=== PATIENT | male | born 1980 | race Asian ===

== ENCOUNTER 2017-02-23 20:12 | Inpatient (IN) | payer OTHER ==
[2017-02-23] MEDS ORDERED: LORAZEPAM CARPU-JECT 2 MG/ML DISP.SYRIN IVPUSH ONE ×2 (20:34→23:16)
[2017-02-23] MEDS ORDERED: SODIUM CHLORIDE 0.9% 500 ML INFUS.BAG IV ONE (20:34)
[2017-02-23] MEDS ORDERED: chlordiazePOXIDE HCL 25 MG CAPSULE PO ONE (20:36)
[2017-02-23] MEDS ORDERED: FOLIC ACID INJECTION - 1 MG, THIAMINE HCL 100 MG, MULTIVIT INJECTION ADULT 10 ML in SOD... IVPB ONE (20:38)
[2017-02-23] MEDS ORDERED: PANTOPRAZOLE SODIUM 40 MG in SODIUM CHLORIDE 100 ML IVPB ONE (20:40)
[2017-02-23] MEDS ORDERED: ONDANSETRON 4 MG/2 ML VIAL IVPUSH ONE (20:40)
--- NOTE | 2017-02-23 20:41 | PDOC ---
History of Present Illness - History of Present Illness Initial Comments: 02/23/17 22:38 Patient is a 36 year old male with significant medical hx of ETOH abuse who is presenting to the ED with several episodes of vomiting with bright red blood today. The patient had two episodes of vomiting with bright red blood followed with one episode of coffee ground emesis this evening. The patient reports poor appetite today. His last BM was today and it was reported normal without any blood, mucous, or change in color. Denies any fever or chills. Patient drinks "a lot"; he has never been through detox. The patient's last drink was this morning. He is a poor historian. Denies any fever, chills, diarrhea, black stooling, blood in stool, mucous in stool. <Yasmin Menendez - Last Filed: 02/23/17 23:07> <Tye Smalls - Last Filed: 02/24/17 01:24> - General Chief Complaint: Coffee Ground Emesis Stated Complaint: VOMITING BLOOD/ALCOHOL INTOX/SUBSTANCE ABUSE Past History <Yasmin Menendez - Last Filed: 02/23/17 23:07> - Psycho/Social/Smoking Cessation Hx Suicidal Ideation: No Smoking History: Current every day smoker Information on smoking cessation initiated: No Hx Alcohol Use: Yes (daily) <Tye Smalls - Last Filed: 02/24/17 01:24> - Past Medical History Allergies/Adverse Reactions: Allergies Allergy/AdvReac Type Severity Reaction Status Date / Time egg Allergy Intermediate Vomiting Verified 02/23/17 20:26 Home Medications: Ambulatory Orders Doxylamine Succinate [Unisom Sleep Aid] 25 mg PO ASDIR 02/23/17 Review of Systems - Review of Systems Comments:: 02/23/17 22:45 GENERAL/CONSTITUTIONAL: Poor appetite. No fever or chills. No weakness. HEAD, EYES, EARS, NOSE AND THROAT: No change in vision. No ear pain or discharge. No sore throat. CARDIOVASCULAR: No chest pain or shortness of breath. RESPIRATORY: No cough, wheezing, or hemoptysis. GASTROINTESTINAL: Nausea, vomiting with blood. No diarrhea or constipation. GENITOURINARY: No dysuria, frequency, or change in urination. MUSCULOSKELETAL: No joint or muscle swelling or pain. No neck or back pain. SKIN: No rash NEUROLOGIC: No headache, vertigo, loss of consciousness, or change in strength/ sensation. <Yasmin Menendez - Last Filed: 02/23/17 23:07> *Physical Exam - Vital Signs Last Vital Signs Temp Pulse Resp BP Pulse Ox 97.5 F L 110 H 18 133/85 98 02/23/17 20:27 02/23/17 21:45 02/23/17 21:45 02/23/17 21:45 02/23/17 21:45 - Physical Exam Comments: 02/23/17 22:46 GENERAL: Awake, alert, and fully oriented, mild distress, diaphoretic, tremulous HEAD: No signs of trauma EYES: PERRLA, EOMI, sclera anicteric, conjunctiva clear ENT: Auricles normal inspection, hearing grossly normal, nares patent, oropharynx clear without exudates. Moist mucosa NECK: Normal ROM, supple, no lymphadenopathy, JVD, or masses LUNGS: Breath sounds equal, clear to auscultation bilaterally. No wheezes, and no crackles HEART: Tachycardic, normal S1 and S2, no murmurs, rubs or gallops ABDOMEN: Soft, epigastric tenderness, normoactive bowel sounds. No guarding, no rebound. No masses EXTREMITIES: Normal range of motion, no edema. No clubbing or cyanosis. No cords, erythema, or tenderness NEUROLOGICAL: Cranial nerves II through XII grossly intact. Normal speech, normal gait SKIN: Warm, Dry, normal turgor, no pallor, no rashes or lesions noted. ENDOCRINE: No increased thirst. No abnormal weight change. HEMATOLOGIC/LYMPHATIC: No anemia, easy bleeding, or history of blood clots. ALLERGIC/IMMUNOLOGIC: No hives or skin allergy. <Yasmin Menendez - Last Filed: 02/23/17 23:07> - Vital Signs Last Vital Signs Temp Pulse Resp BP Pulse Ox 97.5 F L 153 H 20 120/70 98 02/23/17 20:27 02/23/17 20:27 02/23/17 20:27 02/23/17 20:27 02/23/17 20:27 <Tye Smalls - Last Filed: 02/24/17 01:24> Heart Score/ECG Review #1 02/23/17 23:07 Poor data quality, interpretation may be adversely affected Sinus tachycardia at 127 bpm with occasional premature ventricular complexes Otherwise normal ECG <Yasmin Menendez - Last Filed: 02/23/17 23:07> ED Treatment Course - LABORATORY CBC & Chemistry Diagram: 02/23/17 21:00 02/23/17 21:00 - ADDITIONAL ORDERS Additional order review: Laboratory Results 02/23/17 02/23/17 02/23/17 21:00 21:00 21:00 Sodium Potassium Chloride Carbon Dioxide Anion Gap BUN Creatinine Creat Clearance w eGFR Random Glucose Lactic Acid 7.548 H* Calcium Total Bilirubin AST ALT Alkaline Phosphatase Creatine Kinase 151 Troponin I < 0.02 B-Natriuretic Peptide 11.02 Total Protein Albumin TSH Free T4 Blood Type O POSITIVE Antibody Screen Negative 02/23/17 02/23/17 21:00 20:45 Sodium 139 Potassium 4.3 Chloride 97 L Carbon Dioxide 20 L Anion Gap 22 H BUN 15 Creatinine 1.0 Creat Clearance w eGFR > 60 Random Glucose 153 H Lactic Acid Calcium 8.4 L Total Bilirubin 0.7 AST 53 H ALT 67 Alkaline Phosphatase 88 Creatine Kinase 151 Troponin I < 0.02 B-Natriuretic Peptide Total Protein 7.8 Albumin 3.9 TSH 1.07 Free T4 0.63 L Blood Type Antibody Screen 02/23/17 21:00 RBC 4.31 MCV 86.0 MCHC 33.3 RDW 14.9 MPV 6.5 L Neutrophils % 88.2 H Lymphocytes % 7.9 L Monocytes % 3.2 L Eosinophils % 0.1 Basophils % 0.6 - RADIOLOGY Radiograph Interpretation: 02/23/17 22:47 Chest X-Ray Impression: No acute cardiopulmonary disease is present. Reported By: Renetta Bateman MD - Medications Given in the ED: ED Medications Discontinued Medications Generic Name Dose Route Start Last Admin Trade Name Freq PRN Reason Stop Dose Admin Chlordiazepoxide HCl 50 mg 02/23/17 20:36 02/23/17 21:04 Librium - PO 02/23/17 20:37 50 mg ONCE ONE Administration Pantoprazole Sodium 40 mg/ 100 mls @ 200 mls/hr 02/23/17 20:40 02/23/17 21:08 Sodium Chloride IVPB 02/23/17 21:09 200 mls/hr ONCE ONE Administration Lorazepam 2 mg 02/23/17 20:34 02/23/17 20:58 Ativan Injection - IVPUSH 02/23/17 20:35 2 mg ONCE ONE Administration Ondansetron HCl 4 mg 02/23/17 20:40 02/23/17 20:58 Zofran Injection IVPUSH 02/23/17 20:41 4 mg ONCE ONE Administration Sodium Chloride 1,000 ml 02/23/17 20:34 02/23/17 20:58 Normal Saline - IV 02/23/17 20:35 1,000 ml ONCE ONE Administration <Yasmin Menendez - Last Filed: 02/23/17 23:07> - LABORATORY CBC & Chemistry Diagram: 02/23/17 21:00 02/23/17 21:00 - RADIOLOGY Radiology Studies Ordered: Category Date Time Status CHEST X-RAY PORTABLE* [RAD] Stat Radiology 02/23/17 20:35 Ordered <Tye Smalls - Last Filed: 02/24/17 01:24> Medical Decision Making - Critical Care Time Total Critical Care Time (minutes): 60 Critical Care Statement: The care of this patient involved high complexity decision making to prevent further life threatening deterioration of the patient 's condition and/or to evalute & treat vital organ system(s) failure or risk of failure. <Yasmin Menendez - Last Filed: 02/23/17 23:07> - Medical Decision Making 02/24/17 00:49 36yo m with coffee ground emesis and chronic alcoholism with last drink "this morning." I have concern for UGI bleed, particularly, esophageal varices. I have started the patient on octreotide bolus and drip; protonix, zofran, aggressive hydration, nutritional support; I have endorsed the patient to Dr. Bernstein for ICU admission; ICU SENIOR GAME ADVISOR also informed, requests repeat CBC; will redraw ; l;actate improving. He has potential for lung pathology given his chronic excessive alcohol use however, no febrile complaints leading up tothe encounter. I will start him on Azithromycin IVPB <Tye Smalls - Last Filed: 02/24/17 01:24> *DC/Admit/Observation/Transfer - Attestations Scribe Attestion: 02/23/17 22:49 Documentation prepared by Yasmin Menendez, acting as medical field representative for Tye Smalls MD. <Yasmin Menendez - Last Filed: 02/23/17 23:07> - Discharge Dispostion Admit: Yes Decision to Admit order Date/Time: 02/24/17 00:49 - Transfer to Acute Care Facility Transfer comment: 02/24/17 00:49 I, Dr. Tye Smalls MD, attest that this document has been prepared under my direction and personally reviewed by me in its entirety. I further attest, that it accurately reflects all work, treatment, procedures and medical decision -making performed by me. - Attestations Physician Attestion: 02/24/17 01:23 Dr. Tye Banks MD, attest that this document has been prepared under my direction and personally reviewed by me in its entirety. I further attest, that it accurately reflects all work, treatment, procedures and medical decision -making performed by me. <Tye Smalls - Last Filed: 02/24/17 01:24> Diagnosis at time of Disposition: Tachycardia, Tremulousness, Lactic acidosis Alcohol withdrawal Qualifiers: Complication of substance-induced condition: uncomplicated Qualified Code(s): F10.230 - Alcohol dependence with withdrawal, uncomplicated - Discharge Dispostion Condition at time of disposition: Critical
[2017-02-23] MEDS ORDERED: LORAZEPAM CARPU-JECT 2 MG/ML DISP.SYRIN ONE ×2 (20:54→23:40)
[2017-02-23] MEDS ORDERED: ONDANSETRON 4 MG/2 ML VIAL ONE (20:54)
[2017-02-23] MEDS ORDERED: PANTOPRAZOLE SODIUM 100 ML IVPB ONE (21:01)
[2017-02-23] MEDS ORDERED: chlordiazePOXIDE HCL 25 MG CAPSULE ONE (21:01)
[2017-02-23 21:07] LABS: BASOPHIL 0.6 % (0-2.0); EOSINOPHIL 0.1 % (0-4.5); MCH 28.6 pg (25.7-33.7); MCHC 33.3 g/dl (32.0-35.9); MEAN PLT VOLUME 6.5 fl (7.5-11.1); NEUTROPHILS 88.2 % (42.8-82.8); PLATELET COUNT 407 K/MM3 (134-434); RDW 14.9 % (11.9-15.9); WHITE BLOOD COUNT 10.2 K/mm3 (4.0-10.0)
[2017-02-23 21:36] LABS: ALBUMIN 3.9 g/dl (3.4-5.0); ANION GAP 22 (8-16); BILIRUBIN,TOTAL 0.7 mg/dL (0.2-1.0); CALCIUM 8.4 mg/dL (8.5-10.1); CO2 20 mmol/L (21-32); GLUCOSE,RANDOM 153 mg/dL (74-106); SGOT/AST 53 U/L (15-37); SGPT/ALT 67 U/L (12-78); TOT PROT 7.8 g/dl (6.4-8.2)
[2017-02-23 21:37] LABS: TROPONIN I < 0.02 ng/ml (0.00-0.05)
[2017-02-23 21:39] LABS: ALK PHOS 88 U/L (45-117); TROPONIN I < 0.02 ng/ml (0.00-0.05)
[2017-02-23 21:46] LABS: FREE T4 0.63 ng/dl (0.76-1.16); THYROID STIMULATING HORMONE 1.07 uIU/ml (0.358-3.74)
[2017-02-23] MEDS ORDERED: AZITHROMYCIN IVPB 500 MG in DEXTROSE 5%-WATER - 250 ML IVPB ONE (23:16)
[2017-02-23] MEDS ORDERED: OCTREOTIDE ACETATE 50 MCG/1 ML - 1 ML VIAL IVPUSH ONE (23:25)
[2017-02-23] MEDS ORDERED: OCTREOTIDE ACETATE 1,200 MCG in DEXTROSE 5%-WATER - 488 ML IVPB SCH (23:30)
[2017-02-23] MEDS ORDERED: AZITHROMYCIN IVPB 250 ML IVPB ONE (23:40)
[2017-02-23] MEDS ORDERED: OCTREOTIDE ACETATE 500 MCG/1 ML - 1 ML VIAL ONE ×2 (23:42→23:43)
[2017-02-23] MEDS ORDERED: OCTREOTIDE ACETATE 100 MCG/1 ML ONE (23:42)
--- NOTE | 2017-02-24 01:03 | PN ---
<Ricky Villaclarice - Last Filed: 02/24/17 01:03> Teaching Attending Note Name of Resident: Channing Ramos ATTENDING PHYSICIAN STATEMENT I saw and evaluated the patient. I reviewed the resident's note and discussed the case with the resident. I agree with the resident's findings and plan as documented. SUBJECTIVE: OBJECTIVE: ASSESSMENT AND PLAN: <Ruiz Tabares - Last Filed: 02/24/17 03:24> Teaching Attending Note ATTENDING PHYSICIAN STATEMENT I saw and evaluated the patient. I reviewed the resident's note and discussed the case with the resident. I agree with the resident's findings and plan as documented. SUBJECTIVE: Patient is a 36 year old male with significant medical history of ETOH abuse who is presented with 6 episodes of coffee ground emesis. The patient reported that his last episode of vomiting was at 6 pm today. The patient reported associated abdominal pain, headache, and diaphoresis. Stated that his last drink was this morning (3x 24oz beers) Denies any hematemesis, fever, chills, diarrhea, melena, hematochezia, and/or mucous in school. OBJECTIVE: Vital Signs: Last Vital Signs Temp Pulse Resp BP Pulse Ox 100.2 F H 106 H 19 138/85 98 02/24/17 00:46 02/24/17 01:22 02/24/17 01:22 02/24/17 01:22 02/24/17 01:22 Physical Exam: GEN: NAD HEENT: NCAT, PERRL CARD: (+) Sinus tachycardia, S1 S2 RESP: CTAB ABD: (+) Distended abdomen LLQ tender on palpation EXT: - CCE Labs: CBCD WBC 8.1 K/mm3 (4.0-10.0) 02/24/17 01:00 RBC 2.97 M/mm3 (4.00-5.60) L D 02/24/17 01:00 Hgb 8.6 GM/dL (11.7-16.9) L D 02/24/17 01:00 Hct 25.5 % (35.4-49) L D 02/24/17 01:00 MCV 85.9 fl (80-96) 02/24/17 01:00 MCHC 33.7 g/dl (32.0-35.9) 02/24/17 01:00 RDW 15.1 % (11.9-15.9) 02/24/17 01:00 Plt Count 244 K/MM3 (134-434) D 02/24/17 01:00 MPV 6.7 fl (7.5-11.1) L 02/24/17 01:00 CMP Sodium 139 mmol/L (136-145) 02/23/17 21:00 Potassium 4.3 mmol/L (3.5-5.1) 02/23/17 21:00 Chloride 97 mmol/L (98-107) L 02/23/17 21:00 Carbon Dioxide 20 mmol/L (21-32) L 02/23/17 21:00 Anion Gap 22 (8-16) H 02/23/17 21:00 BUN 15 mg/dL (7-18) 02/23/17 21:00 Creatinine 1.0 mg/dL (0.7-1.3) 02/23/17 21:00 Creat Clearance w eGFR > 60 (>60) 02/23/17 21:00 Calcium 8.4 mg/dL (8.5-10.1) L 02/23/17 21:00 Total Bilirubin 0.7 mg/dL (0.2-1.0) 02/23/17 21:00 AST 53 U/L (15-37) H 02/23/17 21:00 ALT 67 U/L (12-78) 02/23/17 21:00 Alkaline Phosphatase 88 U/L (45-117) 02/23/17 21:00 Total Protein 7.8 g/dl (6.4-8.2) 02/23/17 21:00 Albumin 3.9 g/dl (3.4-5.0) 02/23/17 21:00 Imaging: Chest X-Ray Impression: No official read. No acute findings. ECG Impression: Sinus tach 127 with PBCs EXAM: CT abdomen/pelvis without contrast IMAGES: 500 DATE OF SERVICE: 02:16:00.0 REASON FOR EXAM: Distention, chronic alcohol abuse COMPARISON: None FINDINGS: There is no free air. There are no obvious gallstones. There is moderate bilateral hydronephrosis. The ureters are ectatic. No renal or ureteral calculi are seen. The urinary bladder is markedly distended. There are no bladder calculi. The large and small bowel is mildly distended with fluid and air. Findings likely indicative of diffuse ileus. The appendix is normal in size. There is no evidence of appendicitis. THIS DOCUMENT HAS BEEN ELECTRONICALLY SIGNED Geoffrey Carias MD ASSESSMENT AND PLAN: Patient is a 36 year old male with significant medical history of ETOH abuse who is presenting to the ED with several episodes of vomiting coffee ground emesis. Being admitted for GI bleed. 1. Upper GI bleed ? variceal bleed -Protonix drip -IVF -Type and Screen -Coags -2 Large bore IV -Repeat lactic acid -Protonix -Octreotide -GI consult -OCCULT -One unit PRB now and 2 units one hold -CBCs Q6H 2. ETOH abuse -Detox consult -Thimine/follic acid -Librium protocol 3. Elevated lactic acid- most likely from systemic hypoperfusion/alcoholism. -Blood cultures -IVF -Stat Urinalysis -Stat Urine culture -Repeat lactic acid 4. Nausea/Vomiting-mildly distended abdomen -CT abdomen pelvis -Admit to ICU 5. Ileus -NPO -If patient agreeable can consider NGT 6. DVT PPX SCDs Admit to ICU Documentation prepared by Ruiz Tabares, acting as certified medical technician for Dr. Francois Villa MD.
[2017-02-24] MEDS ORDERED: SODIUM CHLORIDE 0.9% 500 ML INFUS.BAG IV ONE (01:26)
[2017-02-24] MEDS ORDERED: SODIUM CHLORIDE 1,000 ML IV SCH ×3 (01:30→19:45)
[2017-02-24 01:46] LABS: BASOPHIL 0.4 % (0-2.0); EOSINOPHIL 0.1 % (0-4.5); MCH 28.9 pg (25.7-33.7); MCHC 33.7 g/dl (32.0-35.9); MEAN CELL VOLUME 85.9 fl (80-96); MEAN PLT VOLUME 6.7 fl (7.5-11.1); NEUTROPHILS 76.5 % (42.8-82.8); PLATELET COUNT 244 K/MM3 (134-434); RDW 15.1 % (11.9-15.9); WHITE BLOOD COUNT 8.1 K/mm3 (4.0-10.0)
[2017-02-24 02:01] LABS: INR 1.28 (0.82-1.09); PROTHROMBIN TIME (PATIENT) 14.2 SEC (9.98-11.88)
--- NOTE | 2017-02-24 02:04 | HP ---
CHIEF COMPLAINT: coffee ground emesis PCP: no pcp HISTORY OF PRESENT ILLNESS: 36 y/o M w/hx of alcohol abuse presents to ER after vomiting 5-7x this AM. Pt is a poor historian. He states he threw up dark brown colored vomit on each occasion and denied any bright red blood. He also c/o diarrhea that was watery , and was dark/black in color. He has some abdominal pain and feels like he is shaking at the moment. He drank 3 - 24ounce beers this AM and drinks 10-12 - 12 ounce beers per day and he has been drinking a large amount of alcohol since he was 23. Denies any drinking anything else besides beer. He has been drinking otherwise since age 7 but not "this much" when he was that young. Denies any drug use. He states he has been hospitalized twice in the past for seizures from withdrawals at [facility]. He denies any fevers or chills, CP, SOB, dysuria. ER course was notable for: (1) banana bag, octreotide, iv protonix, ekg, cxr (2) (3) PAST MEDICAL HISTORY: alcohol abuse PAST SURGICAL HISTORY: denies Social History: Smokin/2 ppd for 4 years Alcohol: 10-12 beers/day Drugs: denies Family History: Allergies egg Allergy (Intermediate, Verified 02/23/17 20:26) Vomiting HOME MEDICATIONS: Home Medications Medication Instructions Recorded Doxylamine Succinate [Unisom Sleep 25 mg PO ASDIR 02/23/17 Aid] REVIEW OF SYSTEMS CONSTITUTIONAL: Absent: fever, chills, diaphoresis, generalized weakness, malaise, loss of appetite, weight change HEENT: Absent: rhinorrhea, nasal congestion, throat pain, throat swelling, difficulty swallowing, mouth swelling, ear pain, eye pain, visual changes CARDIOVASCULAR: Absent: chest pain, syncope, palpitations, irregular heart rate, lightheadedness , peripheral edema RESPIRATORY: Absent: cough, shortness of breath, dyspnea with exertion, orthopnea, wheezing, stridor, hemoptysis GASTROINTESTINAL: abdominal pain, nausea, vomiting, diarrhea dark in color (melena) Absent: constipation GENITOURINARY: Absent: dysuria, frequency, urgency, hesitancy, hematuria, flank pain, genital pain MUSCULOSKELETAL: Absent: myalgia, arthralgia, joint swelling, back pain, neck pain SKIN: Absent: rash, itching, pallor HEMATOLOGIC/IMMUNOLOGIC: Absent: easy bleeding, easy bruising, lymphadenopathy, frequent infections ENDOCRINE: Absent: unexplained weight gain, unexplained weight loss, heat intolerance, cold intolerance NEUROLOGIC: tremulous Absent: headache, focal weakness or paresthesias, dizziness, unsteady gait, seizure, mental status changes, bladder or bowel incontinence PSYCHIATRIC: Absent: anxiety, depression, suicidal or homicidal ideation, hallucinations. PHYSICAL EXAMINATION Vital Signs - 24 hr 02/23/17 02/23/17 02/23/17 20:27 21:45 23:01 Temperature 97.5 F L Pulse Rate 153 H Pulse Rate [ 110 H 107 H Apical] Respiratory 20 18 24 Rate Blood Pressure 120/70 Blood Pressure 133/85 136/85 [Right Arm] O2 Sat by Pulse 98 98 96 Oximetry (%) 02/24/17 02/24/17 00:46 01:22 Temperature 100.2 F H Pulse Rate Pulse Rate [ 121 H 106 H Apical] Respiratory 20 19 Rate Blood Pressure Blood Pressure 138/85 [Right Arm] O2 Sat by Pulse 100 98 Oximetry (%) GENERAL: Awake, alert, and fully oriented, in moderate distress. Tremulous, anxious. HEAD: Normal with no signs of trauma. EYES: extraocular movements intact, sclera anicteric, conjunctiva clear. No lid lag. EARS, NOSE, THROAT: Ears normal, nares patent, oropharynx clear without exudates. Moist mucous membranes. Tongue with some brownish discoloration. NECK: Normal range of motion LUNGS: Tachypneic, Breath sounds equal, clear to auscultation bilaterally. No wheezes, and no crackles. No accessory muscle use. HEART: Tachycardic, normal S1 and S2 without murmur, rub or gallop. ABDOMEN: Soft, epigastric tenderness, distended, hypoactive bowel sounds, no guarding, no rebound, no masses. No hepatomegaly or splenomegaly. MUSCULOSKELETAL: Normal range of motion at all joints. No bony deformities or tenderness. No CVA tenderness. LOWER EXTREMITIES: 2+ pulses, warm, well-perfused. No calf tenderness. No peripheral edema. NEUROLOGICAL: Normal speech. Gait not observed. PSYCHIATRIC: Cooperative. Good eye contact. SKIN: Warm, dry, normal turgor, no rashes or lesions noted, normal capillary refill. Laboratory Results - last 24 hr 02/23/17 02/23/17 02/23/17 20:45 21:00 21:00 WBC 10.2 H RBC 4.31 Hgb 12.3 Hct 37.1 MCV 86.0 MCHC 33.3 RDW 14.9 Plt Count 407 MPV 6.5 L Neutrophils % 88.2 H Lymphocytes % 7.9 L Monocytes % 3.2 L Eosinophils % 0.1 Basophils % 0.6 INR Sodium 139 Potassium 4.3 Chloride 97 L Carbon Dioxide 20 L Anion Gap 22 H BUN 15 Creatinine 1.0 Creat Clearance w eGFR > 60 Random Glucose 153 H Lactic Acid Calcium 8.4 L Total Bilirubin 0.7 AST 53 H ALT 67 Alkaline Phosphatase 88 Creatine Kinase 151 Creatine Kinase Index CK-MB (CK-2) CK-MB (CK-2) Rel Index Troponin I < 0.02 B-Natriuretic Peptide Total Protein 7.8 Albumin 3.9 TSH 1.07 Free T4 0.63 L Alcohol, Quantitative Blood Type Antibody Screen 02/23/17 02/23/17 02/23/17 21:00 21:00 21:00 WBC RBC Hgb Hct MCV MCHC RDW Plt Count MPV Neutrophils % Lymphocytes % Monocytes % Eosinophils % Basophils % INR Sodium Potassium Chloride Carbon Dioxide Anion Gap BUN Creatinine Creat Clearance w eGFR Random Glucose Lactic Acid 7.548 H* Calcium Total Bilirubin AST ALT Alkaline Phosphatase Creatine Kinase 151 Creatine Kinase Index 0.8 CK-MB (CK-2) 1.196 CK-MB (CK-2) Rel Index Troponin I < 0.02 B-Natriuretic Peptide 11.02 Total Protein Albumin TSH Free T4 Alcohol, Quantitative Blood Type O POSITIVE Antibody Screen Negative 02/23/17 02/23/17 02/23/17 21:00 22:50 23:18 WBC RBC Hgb Hct MCV MCHC RDW Plt Count MPV Neutrophils % Lymphocytes % Monocytes % Eosinophils % Basophils % INR Sodium Potassium Chloride Carbon Dioxide Anion Gap BUN Creatinine Creat Clearance w eGFR Random Glucose Lactic Acid 5.577 H* Calcium Total Bilirubin AST ALT Alkaline Phosphatase Creatine Kinase Creatine Kinase Index CK-MB (CK-2) CK-MB (CK-2) Rel Index Cancelled Troponin I B-Natriuretic Peptide Total Protein Albumin TSH Free T4 Alcohol, Quantitative 45.1 H* Blood Type Antibody Screen 02/24/17 02/24/17 01:00 01:00 WBC 8.1 RBC 2.97 L D Hgb 8.6 L D Hct 25.5 L D MCV 85.9 MCHC 33.7 RDW 15.1 Plt Count 244 D MPV 6.7 L Neutrophils % 76.5 Lymphocytes % 16.1 D Monocytes % 6.9 D Eosinophils % 0.1 Basophils % 0.4 INR 1.28 H Sodium Potassium Chloride Carbon Dioxide Anion Gap BUN Creatinine Creat Clearance w eGFR Random Glucose Lactic Acid Calcium Total Bilirubin AST ALT Alkaline Phosphatase Creatine Kinase Creatine Kinase Index CK-MB (CK-2) CK-MB (CK-2) Rel Index Troponin I B-Natriuretic Peptide Total Protein Albumin TSH Free T4 Alcohol, Quantitative Blood Type Antibody Screen Urine Test Results Urine Color Straw 02/24/17 03:00 Urine Appearance Clear 02/24/17 03:00 Urine pH 5.0 (5.0-8.0) 02/24/17 03:00 Ur Specific [place] 1.012 (1.001-1.035) 02/24/17 03:00 Urine Protein Negative (NEGATIVE) 02/24/17 03:00 Urine Glucose (UA) 1+ (NEGATIVE) H 02/24/17 03:00 Urine Ketones 1+ (NEGATIVE) H 02/24/17 03:00 Urine Blood Negative (NEGATIVE) 02/24/17 03:00 Urine Nitrite Negative (NEGATIVE) 02/24/17 03:00 Urine Bilirubin Negative (NEGATIVE) 02/24/17 03:00 Ur Leukocyte Esterase Negative (NEGATIVE) 02/24/17 03:00 Imaging: CXR - no active pulmonary disease Abd CT - There is no free air. There are no obvious gallstones. There is moderate bilateral hydronephrosis. The ureters are ectatic. No renal or ureteral calculi are seen. The urinary bladder is markedly distended. There are no bladder calculi. The large and small bowel is mildly distended with fluid and air. Findings likely indicative of diffuse ileus. The appendix is normal in size. There is no evidence of appendicitis. THIS DOCUMENT HAS BEEN ELECTRONICALLY SIGNED Geoffrey Carias MD Active Medications Folic Acid 1 mg/ Thiamine HCl 100 mg/ Multivitamins/Minerals 10 ml/ Sodium Chloride 1,000 mls @ 125 mls/hr IVPB ONCE ONE Stop: 02/24/17 04:37 Last Admin: 02/23/17 21:40 Dose: 125 mls/hr Octreotide Acetate 1,200 mcg/ (Dextrose) 500 mls @ 20.83 mls/hr IVPB Q24H OWEN; 50 MCG/HR PRN Reason: Protocol Last Admin: 02/24/17 00:11 Dose: 20.83 mls/hr Sodium Chloride (Normal Saline -) 1,000 mls @ 100 mls/hr IV ASDIR OWEN Last Admin: 02/24/17 01:41 Dose: 100 mls/hr Pantoprazole Sodium 80 mg/ (Sodium Chloride) 100 mls @ 10 mls/hr IVPB Q10H OWEN PRN Reason: 8 MG/HR ASSESSMENT/PLAN: 36 y/o M w/hx of alcohol abuse presents to ER after vomiting dark brown colored vomit 5-7x this AM. Admitted for upper gi bleed. -Upper GI bleed, possible esophageal varices -Hgb dropped from 12.3 to 8.6 -Transfused 1 unit, currently transfusing, 2 units on hold currently -f/u Hgb after transfusion -monitor H/H q6h -c/w protonix drip, c/w octreotide -GI Consulted (Dr. Fung) -f/u FOBT -consider NG tube placement, care due to possible varices -NPO -Alcohol dependance -Dr. Foster consulted -Librium protocol -Folic acid and thiamine supplementation -alcohol level : 45.1 -Lactic acidosis -most likely secondary to alcoholism -NS @ 100 ml/hr -UA neg, Utox neg -f/u UCx, BCx, trend Lactic acid -Ceftriaxone 1g IV qd -f/u CXR in AM -Distended abdomen secondary to ileus vs distended bladder -ileus as seen on CT abd -NPO -consider NGT, care due to possible varices -Distended bladder as seen on CT abd -Murray inserted -DVT ppx -SCDs -FEN -NS @ 100 ml/hr -hypochloremia - on NS @ 100ml/hr, monitor -NPO -Dispo: -Admit to ICU. Problem List - Problem (1) Alcohol withdrawal Code(s): F10.239 - ALCOHOL DEPENDENCE WITH WITHDRAWAL, UNSPECIFIED Qualifiers : Complication of substance-induced condition: uncomplicated Qualified Code(s): F10.230 - Alcohol dependence with withdrawal, uncomplicated (2) Lactic acidosis Code(s): E87.2 - ACIDOSIS (3) Tachycardia Code(s): R00.0 - TACHYCARDIA, UNSPECIFIED (4) Tremulousness Code(s): R25.1 - TREMOR, UNSPECIFIED (5) Urinary retention Code(s): R33.9 - RETENTION OF URINE, UNSPECIFIED (6) Ileus Code(s): K56.7 - ILEUS, UNSPECIFIED (7) Alcohol dependence Code(s): F10.20 - ALCOHOL DEPENDENCE, UNCOMPLICATED Visit type - Emergency Visit Emergency Visit: Yes ED Registration Date: 02/24/17 Care time: The patient presented to the Emergency Department on the above date and was hospitalized for further evaluation of their emergent condition. - New Patient This patient is new to me today: Yes Date on this admission: 02/24/17 - Critical Care Critical Care patient: Yes Total Critical Care Time (in minutes): 45 Critical Care Statement: The care of this patient involved high complexity decision making to prevent further life threatening deterioration of the patient 's condition and/or to evalute & treat vital organ system(s) failure or risk of failure.
[2017-02-24] MEDS ORDERED: PANTOPRAZOLE SODIUM 40 MG VIAL ONE ×3 (02:35→11:35)
--- NOTE | 2017-02-24 03:08 | MSN ---
Admitting History and Physical - Admission Chief Complaint: Recurrent episodes of vomiting History of Present Illness: Pt is a 36 yo M with a PMHx of chronic alcohol abuse and alcohol withdrawal seizures who presents to the ED with "6-7" episodes of hematemesis this morning. He states the vomit appeared dark brown and denies seeing bright red blood. The pt reports dark brown/black diarrhea as well. Pt admits to associated headaches and diaphoresis during the episodes of vomiting. Pt had three 24oz beers prior to the onset of vomiting. Currently, pt reports abdominal pain and says he feels shaky. Denies fevers, chills, CP, SOB, nausea, or vomiting since 6pm tonight. 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) Psych: Yes: Addictions (Alcohol) - Past Surgical History Past Surgical History: Yes: None - Smoking History Smoking history: Current every day smoker (1/2 ppd for the past 4 years) Have you smoked in the past 12 months: Yes - Alcohol/Substance Use Hx Alcohol Use: Yes (Since the age of 23) Number of Drinks Daily: 10 (10-12 12oz beers daily) History of Substance Use: reports: None - Social History Usual Living Arrangement: Yes: Alone ADL: Independent History of Recent Travel: No Home Medications - Allergies Allergies/Adverse Reactions: Allergies Allergy/AdvReac Type Severity Reaction Status Date / Time egg Allergy Intermediate Vomiting Verified 02/23/17 20:26 - Home Medications Home Medications: Ambulatory Orders Doxylamine Succinate [Unisom Sleep Aid] 25 mg PO ASDIR 02/23/17 Family Disease History - Family Disease History Family History: Unremarkable Review of Systems - Review of Systems Constitutional: reports: Diaphoresis. denies: Chills, Fever Cardiovascular: denies: Chest Pain, Edema, Palpitations, Shortness of Breath Respiratory: denies: Cough, Hemoptysis, SOB, Wheezing Gastrointestinal: reports: Abdominal Pain, Diarrhea, Melena, Nausea, Vomiting, Vomiting Blood (Coffee ground emesis) Genitourinary: reports: Dysuria, Frequency, Hematuria Neurological: reports: Headache, Tremors Physical Examination Vital Signs: Vital Signs Period Temp Pulse Resp BP Sys/Padilla Pulse Ox Last 24 Hr 97.5 F-100.2 F 106-153 18-24 120-138/70-85 96-100 Constitutional: Yes: Well Nourished, Anxious, Diaphoresis, Mild Distress, Thin Eyes: Yes: WNL, Conjunctiva Clear, EOM Intact. No: Sclera Icterus HENT: Yes: Atraumatic, Normocephalic. No: Drooling, Epistaxis, Hoarseness, Pharyngeal Erythema, Rhinnorhea, Thrush, Tonsillar Exudate Neck: Yes: Trachea Midline Cardiovascular: Yes: Tachycardia, S1, S2. No: JVD, Gallop, Murmur, Rub Respiratory: Yes: Regular, CTA Bilaterally. No: Accessory Muscle Use, Bradypnea , Cough, Rales, Rhonchi, Stridor, Wheezes Gastrointestinal: Yes: Distention, Hypoactive Bowel Sounds, Tenderness, Tenderness, Epigastrium Extremities: Yes: WNL Edema: No Peripheral Pulses WNL: Yes Integumentary: Yes: WNL Neurological: Yes: Alert, Oriented, Tremors. No: Asterixis ...Motor Strength: WNL Psychiatric: Yes: WNL, Alert, Oriented Labs: CBC WBC 8.1 K/mm3 (4.0-10.0) 02/24/17 01:00 RBC 2.97 M/mm3 (4.00-5.60) L D 02/24/17 01:00 Hgb 8.6 GM/dL (11.7-16.9) L D 02/24/17 01:00 Hct 25.5 % (35.4-49) L D 02/24/17 01:00 MCV 85.9 fl (80-96) 02/24/17 01:00 MCHC 33.7 g/dl (32.0-35.9) 02/24/17 01:00 RDW 15.1 % (11.9-15.9) 02/24/17 01:00 Plt Count 244 K/MM3 (134-434) D 02/24/17 01:00 MPV 6.7 fl (7.5-11.1) L 02/24/17 01:00 Neutrophils % 76.5 % (42.8-82.8) 02/24/17 01:00 Lymphocytes % 16.1 % (8-40) D 02/24/17 01:00 Monocytes % 6.9 % (3.8-10.2) D 02/24/17 01:00 Eosinophils % 0.1 % (0-4.5) 02/24/17 01:00 Basophils % 0.4 % (0-2.0) 02/24/17 01:00 CMP Sodium 139 mmol/L (136-145) 02/23/17 21:00 Potassium 4.3 mmol/L (3.5-5.1) 02/23/17 21:00 Chloride 97 mmol/L (98-107) L 02/23/17 21:00 Carbon Dioxide 20 mmol/L (21-32) L 02/23/17 21:00 Anion Gap 22 (8-16) H 02/23/17 21:00 BUN 15 mg/dL (7-18) 02/23/17 21:00 Creatinine 1.0 mg/dL (0.7-1.3) 02/23/17 21:00 Creat Clearance w eGFR > 60 (>60) 02/23/17 21:00 Random Glucose 153 mg/dL (74-106) H 02/23/17 21:00 Lactic Acid 5.577 mmol/L (0.4-2.0) H* 02/23/17 22:50 Calcium 8.4 mg/dL (8.5-10.1) L 02/23/17 21:00 Total Bilirubin 0.7 mg/dL (0.2-1.0) 02/23/17 21:00 AST 53 U/L (15-37) H 02/23/17 21:00 ALT 67 U/L (12-78) 02/23/17 21:00 Alkaline Phosphatase 88 U/L (45-117) 02/23/17 21:00 Creatine Kinase 151 IU/L (39-308) 02/23/17 21:00 Creatine Kinase Index 0.8 % (0.0-5.0) 02/23/17 21:00 CK-MB (CK-2) 1.196 ng/ml (0.5-3.6) 02/23/17 21:00 CK-MB (CK-2) Rel Index Cancelled 02/23/17 21:00 Troponin I < 0.02 ng/ml (0.00-0.05) 02/23/17 21:00 B-Natriuretic Peptide 11.02 pg/ml (5-125) 02/23/17 21:00 Total Protein 7.8 g/dl (6.4-8.2) 02/23/17 21:00 Albumin 3.9 g/dl (3.4-5.0) 02/23/17 21:00 TSH 1.07 uIU/ml (0.358-3.74) 02/23/17 20:45 Free T4 0.63 ng/dl (0.76-1.16) L 02/23/17 20:45 Urine Test Results Urine Color Straw 02/24/17 03:00 Urine Appearance Clear 02/24/17 03:00 Urine pH 5.0 (5.0-8.0) 02/24/17 03:00 Ur Specific [place] 1.012 (1.001-1.035) 02/24/17 03:00 Urine Protein Negative (NEGATIVE) 02/24/17 03:00 Urine Glucose (UA) 1+ (NEGATIVE) H 02/24/17 03:00 Urine Ketones 1+ (NEGATIVE) H 02/24/17 03:00 Urine Blood Negative (NEGATIVE) 02/24/17 03:00 Urine Nitrite Negative (NEGATIVE) 02/24/17 03:00 Urine Bilirubin Negative (NEGATIVE) 02/24/17 03:00 Ur Leukocyte Esterase Negative (NEGATIVE) 02/24/17 03:00 Imaging - Results Chest X-ray: Report Reviewed, Image Reviewed (No air under diaphragm, no lung pathology) Cat Scan: Pending, Image Reviewed EKG: Report Reviewed (Sinus Tachy @125 bpm with PVCs) Problem List - Problems (1) Alcohol withdrawal (2) Lactic acidosis (3) Tachycardia (4) Tremulousness Assessment/Plan Pt is a 36 yo M with a PMHx of chronic alcohol abuse who presented to the ED with multiple episodes of coffee ground emesis. Pt is being admitted for upper GI bleed. 1. Upper GI bleed -IVF (NS bolus + NS @100mls/hr) -Transfuse 1 unit PRBCs. Hold an additional 2 units -Protonix drip -Octreotide drip -Empiric ceftriaxone 1gm IV daily -CBC, coags, and CMP Q6H -Guaiac pending -CT abd/pelvis performed -GI consult pending 2. Acute alcohol withdrawal -Alcohol level of 45 -Librium protocol -Banana bag given -Urine drug screen negative -Detox consult pending 3. Lactic acidosis -Likely 2/2 to hypoperfusion in the setting of hypovolemia due to recurrent vomiting -Trending down, 7.54 -> 5.57 -> 2.58 -Continue to trend LA -UA negative -Urine Cx pending -Blood Cx pending 4. Distended abdomen -2/2 to ileus vs. distended bladder as seen on CT abd -Murray inserted. Later removed per pt request -? NG tube pending GI consult 5. FEN -NS bolus + NS @100mls/hr -Hypochloremia likely 2/2 vomiting. NS should help to replenish. Continue to monitor BMP -NPO 6. DVT ppx -Hold AC -SCDs 7. Dispo -Admitted for UGIB -Will need ICU bed Justin Holt, MS3
[2017-02-24 03:31] LABS: URINE APPEARANCE CLEAR; URINE BILIRUBIN NEGATIVE (NEGATIVE); URINE BLOOD NEGATIVE (NEGATIVE); URINE COLOR STRAW; URINE GLUCOSE (UA) 1+ (NEGATIVE); URINE KETONE 1+ (NEGATIVE); URINE LEUK ESTERASE NEGATIVE (NEGATIVE); URINE NITRITE NEGATIVE (NEGATIVE); URINE PROTEIN NEGATIVE (NEGATIVE); URINE UROBILINOGEN NEGATIVE E.U./dl (0.2-1.0)
[2017-02-24 03:37] LABS: URINE MARIJUANA THC NEGATIVE ng/ml (CUTOFF=50)
[2017-02-24] MEDS: PANTOPRAZOLE SODIUM 80 MG in SODIUM CHLORIDE 100 ML IVPB SCH ×3 (03:39→22:30)
[2017-02-24] MEDS ORDERED: chlordiazePOXIDE HCL 25 MG CAPSULE PO PRN (04:42)
[2017-02-24] MEDS: chlordiazePOXIDE HCL 25 MG CAPSULE PO SCH ×4 (05:02→22:53)
[2017-02-24 07:02] LABS: BASOPHIL 0.7 % (0-2.0); EOSINOPHIL 0.8 % (0-4.5); MCHC 33.3 g/dl (32.0-35.9); MEAN CELL VOLUME 87.1 fl (80-96); MEAN PLT VOLUME 6.8 fl (7.5-11.1); NEUTROPHILS 62.1 % (42.8-82.8); PLATELET COUNT 183 K/MM3 (134-434); RDW 14.8 % (11.9-15.9); WHITE BLOOD COUNT 7.1 K/mm3 (4.0-10.0)
[2017-02-24 07:17] LABS: INR 1.2 (0.82-1.09); PROTHROMBIN TIME (PATIENT) 13.3 SEC (9.98-11.88)
[2017-02-24 07:20] LABS: ACTIVATED PTT 29.4 SECONDS (26.9-34.4)
[2017-02-24 07:28] LABS: ANION GAP 12 (8-16); BILIRUBIN,TOTAL 0.9 mg/dL (0.2-1.0); CO2 24 mmol/L (21-32); CREATININE 0.7 mg/dL (0.7-1.3); GLUCOSE,RANDOM 114 mg/dL (74-106); MAGNESIUM 1.6 mg/dL (1.8-2.4); PHOSPHOROUS 1.6 mg/dL (2.5-4.9); SGOT/AST 36 U/L (15-37); SGPT/ALT 39 U/L (12-78); TOT PROT 5.4 g/dl (6.4-8.2)
[2017-02-24 07:29] LABS: ALK PHOS 58 U/L (45-117)
[2017-02-24 07:45] LABS: CALCIUM 6.9 mg/dL (8.5-10.1)
[2017-02-24] MEDS ORDERED: MAGNESIUM SULF 50% (8.12 MEQ/2 ML-1 GM VIAL) IVPB ONE (08:30)
[2017-02-24] MEDS ORDERED: MAGNESIUM SULF 50% (8.12 MEQ/2 ML-1 GM VIAL) ONE (09:12)
[2017-02-24] MEDS ORDERED: CEFTRIAXONE 50 ML ONE (09:12)
[2017-02-24] MEDS: FOLIC ACID 1 MG TABLET (FP) PO SCH (09:27)
[2017-02-24] MEDS: NAPH,MB-DB/K PH,MBDB POWDER PACKET PO SCH ×2 (09:27→22:52)
[2017-02-24] MEDS: THIAMINE HCL 100 MG TABLET (FP) PO SCH (09:28)
[2017-02-24] MEDS ORDERED: CEFTRIAXONE 50 ML IVPB SCH (10:00)
[2017-02-24] MEDS ORDERED: LIDOCAINE HCL 2% JELLY 10 ML CARTRIDGE ONE (11:07)
[2017-02-24] MEDS ORDERED: chlordiazePOXIDE HCL 25 MG CAPSULE ONE (11:34)
[2017-02-24] MEDS ORDERED: CEFTRIAXONE 100 ML IVPB ONE (11:40)
[2017-02-24] MEDS ORDERED: METRONIDAZOLE 500 MG PREMIXED 100 ML IVPB ONE (11:40)
[2017-02-24] MEDS: cefTRIAXone 2 GM/100 ML BAG (PRE-DOCKED) IVPB SCH (11:41)
[2017-02-24] MEDS: METRONIDAZOLE 500 MG PREMIXED 100 ML IVPB SCH ×2 (11:45→17:08)
--- NOTE | 2017-02-24 12:42 | PN ---
Teaching Attending Note Name of Resident: Hayley Livingston ATTENDING PHYSICIAN STATEMENT I saw and evaluated the patient. I reviewed the resident's note and discussed the case with the resident. I agree with the resident's findings and plan as documented. SUBJECTIVE: no fever or chills, has mild lower abd pain . reports drinking excessively . no SP or SOB . reported diarrhea of watery non bloody stool in past 4 days coffee ground emesis yesterday . with one episode of bright red with emesis . abd pain started only yesterday OBJECTIVE: NAD , Awake , alert and oriented. HEENT: slightly dry MM. No facial droop. no nystagmus CV: RRR. Lungs : CTAB Abd : distended , TTP in lower abd , bladder is palpated up almost to umbilicus , with dullness over bladder. no rebound tenderness or guarding. liver is not palpated or percussed , spleen is not palpated . no CVA tenderness ASSESSMENT AND PLAN: 36 y/o man with h/o alcoholism , withdrawal seizures who rpesented with coffee ground emesis and lower abd pain, was found to have lactic acidosis . 1- Upper GI bleed. likely from erosive gastritis from alcohol use. of course PUD , and variceal bleed ( although less likely ) can't be r/o. the bright red blood , is probably due to Arely Kay tear. Hb stabilized after transfusion , and o more episodes of bleeding happened. - Repeat H&H in 6 hrs and then in evening - cont PPI gtt and octriotide gtt( likely octriotide gtt will be dc'd ) - transfuse fro further bleed or if HB < 7. - GI consult pending . will call - rectal exam by resident did not reveal blood in stool. repeat OB in stool x2 2- Lactic acidosis : no signs of infection ( nl UA , no skin infections, no cough or PNA ) . It could be due to hypoperfusion from bleeding , or due to bowel ischemia (given the degree of colon distention, ischemia might have happened) . - Give aggressive hydration and trend lactic acid. - will ask GI to help with this issue due to suspicion fro ischemia - follow blood cx - start ceftriaxone and flagyl empirically due to possible ischemia 3- colon distention : not sure of etiology. ? Urinary retention cause ileus , or other causes - check C diff. need to r/o toxic susana colon - send stool cx , adn fecal leukocytes - GI help appreciated 4- Urinary retention : not sure of cause , could be bowel etiology triggered that - bladder scan and then liu ( RN instructed to drain bladder slowly with clamping after each 700 cc ) 5- Alcohol withdrawal : no signs of Wernicke's . - replete electrolytes to avoid refeeding sx - received thiamine , will cont - folic acid . - Librium protocol. 6- Mechanicl DVT px due to GI bleed
--- NOTE | 2017-02-24 12:52 | CONSULT ---
Consult Detox [facility] Reason for Current Admission/Consult: Alcohol withdrawal sx Referred by:: Channing Ramos Res - History History of Present Illness: 36 y/o man with a long hx. of alcoholism is admitted because he vomited blood. 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) Psych: Yes: Addictions (Alcohol) - Past Surgical History Past Surgical History: Yes: None - Significant Medical Findings: Laboratory Results - last 24 hr 02/23/17 02/23/17 02/23/17 20:45 21:00 21:00 WBC 10.2 H RBC 4.31 Hgb 12.3 Hct 37.1 MCV 86.0 MCHC 33.3 RDW 14.9 Plt Count 407 MPV 6.5 L Neutrophils % 88.2 H Lymphocytes % 7.9 L Monocytes % 3.2 L Eosinophils % 0.1 Basophils % 0.6 INR PTT (Actin FS) Sodium 139 Potassium 4.3 Chloride 97 L Carbon Dioxide 20 L Anion Gap 22 H BUN 15 Creatinine 1.0 Creat Clearance w eGFR > 60 Random Glucose 153 H Lactic Acid Calcium 8.4 L Phosphorus Magnesium Total Bilirubin 0.7 AST 53 H ALT 67 Alkaline Phosphatase 88 Creatine Kinase 151 Creatine Kinase Index CK-MB (CK-2) CK-MB (CK-2) Rel Index Troponin I < 0.02 B-Natriuretic Peptide Total Protein 7.8 Albumin 3.9 Lipase TSH 1.07 Free T4 0.63 L Urine Color Urine Appearance Urine pH Ur Specific [place] Urine Protein Urine Glucose (UA) Urine Ketones Urine Blood Urine Nitrite Urine Bilirubin Urine Urobilinogen Ur Leukocyte Esterase Opiates Screen Methadone Screen Barbiturate Screen Phencyclidine Screen Ur Amphetamines Screen MDMA (Ecstasy) Screen Benzodiazepines Screen Cocaine Screen U Marijuana (THC) Screen Alcohol, Quantitative Blood Type Antibody Screen Crossmatch 02/23/17 02/23/17 02/23/17 21:00 21:00 21:00 WBC RBC Hgb Hct MCV MCHC RDW Plt Count MPV Neutrophils % Lymphocytes % Monocytes % Eosinophils % Basophils % INR PTT (Actin FS) Sodium Potassium Chloride Carbon Dioxide Anion Gap BUN Creatinine Creat Clearance w eGFR Random Glucose Lactic Acid 7.548 H* Calcium Phosphorus Magnesium Total Bilirubin AST ALT Alkaline Phosphatase Creatine Kinase 151 Creatine Kinase Index 0.8 CK-MB (CK-2) 1.196 CK-MB (CK-2) Rel Index Troponin I < 0.02 B-Natriuretic Peptide 11.02 Total Protein Albumin Lipase TSH Free T4 Urine Color Urine Appearance Urine pH Ur Specific [place] Urine Protein Urine Glucose (UA) Urine Ketones Urine Blood Urine Nitrite Urine Bilirubin Urine Urobilinogen Ur Leukocyte Esterase Opiates Screen Methadone Screen Barbiturate Screen Phencyclidine Screen Ur Amphetamines Screen MDMA (Ecstasy) Screen Benzodiazepines Screen Cocaine Screen U Marijuana (THC) Screen Alcohol, Quantitative Blood Type O POSITIVE Antibody Screen Negative Crossmatch See Detail 02/23/17 02/23/17 02/23/17 21:00 22:50 23:10 WBC RBC Hgb Hct MCV MCHC RDW Plt Count MPV Neutrophils % Lymphocytes % Monocytes % Eosinophils % Basophils % INR PTT (Actin FS) Sodium Potassium Chloride Carbon Dioxide Anion Gap BUN Creatinine Creat Clearance w eGFR Random Glucose Lactic Acid 5.577 H* Calcium Phosphorus Magnesium Total Bilirubin AST ALT Alkaline Phosphatase Creatine Kinase Creatine Kinase Index CK-MB (CK-2) CK-MB (CK-2) Rel Index Cancelled Troponin I B-Natriuretic Peptide Total Protein Albumin Lipase 55 L TSH Free T4 Urine Color Urine Appearance Urine pH Ur Specific [place] Urine Protein Urine Glucose (UA) Urine Ketones Urine Blood Urine Nitrite Urine Bilirubin Urine Urobilinogen Ur Leukocyte Esterase Opiates Screen Methadone Screen Barbiturate Screen Phencyclidine Screen Ur Amphetamines Screen MDMA (Ecstasy) Screen Benzodiazepines Screen Cocaine Screen U Marijuana (THC) Screen Alcohol, Quantitative Blood Type Antibody Screen Crossmatch 02/23/17 02/24/17 02/24/17 23:18 01:00 01:00 WBC 8.1 RBC 2.97 L D Hgb 8.6 L D Hct 25.5 L D MCV 85.9 MCHC 33.7 RDW 15.1 Plt Count 244 D MPV 6.7 L Neutrophils % 76.5 Lymphocytes % 16.1 D Monocytes % 6.9 D Eosinophils % 0.1 Basophils % 0.4 INR PTT (Actin FS) 29.7 Sodium Potassium Chloride Carbon Dioxide Anion Gap BUN Creatinine Creat Clearance w eGFR Random Glucose Lactic Acid Calcium Phosphorus Magnesium Total Bilirubin AST ALT Alkaline Phosphatase Creatine Kinase Creatine Kinase Index CK-MB (CK-2) CK-MB (CK-2) Rel Index Troponin I B-Natriuretic Peptide Total Protein Albumin Lipase TSH Free T4 Urine Color Urine Appearance Urine pH Ur Specific [place] Urine Protein Urine Glucose (UA) Urine Ketones Urine Blood Urine Nitrite Urine Bilirubin Urine Urobilinogen Ur Leukocyte Esterase Opiates Screen Methadone Screen Barbiturate Screen Phencyclidine Screen Ur Amphetamines Screen MDMA (Ecstasy) Screen Benzodiazepines Screen Cocaine Screen U Marijuana (THC) Screen Alcohol, Quantitative 45.1 H* Blood Type Antibody Screen Crossmatch 02/24/17 02/24/17 02/24/17 01:00 03:00 03:00 WBC RBC Hgb Hct MCV MCHC RDW Plt Count MPV Neutrophils % Lymphocytes % Monocytes % Eosinophils % Basophils % INR 1.28 H PTT (Actin FS) Sodium Potassium Chloride Carbon Dioxide Anion Gap BUN Creatinine Creat Clearance w eGFR Random Glucose Lactic Acid Calcium Phosphorus Magnesium Total Bilirubin AST ALT Alkaline Phosphatase Creatine Kinase Creatine Kinase Index CK-MB (CK-2) CK-MB (CK-2) Rel Index Troponin I B-Natriuretic Peptide Total Protein Albumin Lipase TSH Free T4 Urine Color Straw Urine Appearance Clear Urine pH 5.0 Ur Specific [place] 1.012 Urine Protein Negative Urine Glucose (UA) 1+ H Urine Ketones 1+ H Urine Blood Negative Urine Nitrite Negative Urine Bilirubin Negative Urine Urobilinogen Negative Ur Leukocyte Esterase Negative Opiates Screen Negative Methadone Screen Negative Barbiturate Screen Negative Phencyclidine Screen Negative Ur Amphetamines Screen Negative MDMA (Ecstasy) Screen Negative Benzodiazepines Screen Negative Cocaine Screen Negative U Marijuana (THC) Screen Negative Alcohol, Quantitative Blood Type Antibody Screen Crossmatch 02/24/17 02/24/17 02/24/17 03:50 06:25 06:25 WBC 7.1 RBC 3.20 L Hgb 9.3 L Hct 27.8 L MCV 87.1 MCHC 33.3 RDW 14.8 Plt Count 183 D MPV 6.8 L Neutrophils % 62.1 Lymphocytes % 27.5 D Monocytes % 8.9 Eosinophils % 0.8 D Basophils % 0.7 INR PTT (Actin FS) Sodium 143 Potassium 4.1 Chloride 107 D Carbon Dioxide 24 Anion Gap 12 BUN 13 Creatinine 0.7 D Creat Clearance w eGFR > 60 Random Glucose 114 H D Lactic Acid 2.580 H* Calcium 6.9 L* Phosphorus 1.6 L Magnesium 1.6 L Total Bilirubin 0.9 D AST 36 D ALT 39 D Alkaline Phosphatase 58 D Creatine Kinase Creatine Kinase Index CK-MB (CK-2) CK-MB (CK-2) Rel Index Troponin I B-Natriuretic Peptide Total Protein 5.4 L D Albumin 3.0 L D Lipase TSH Free T4 Urine Color Urine Appearance Urine pH Ur Specific [place] Urine Protein Urine Glucose (UA) Urine Ketones Urine Blood Urine Nitrite Urine Bilirubin Urine Urobilinogen Ur Leukocyte Esterase Opiates Screen Methadone Screen Barbiturate Screen Phencyclidine Screen Ur Amphetamines Screen MDMA (Ecstasy) Screen Benzodiazepines Screen Cocaine Screen U Marijuana (THC) Screen Alcohol, Quantitative Blood Type Antibody Screen Crossmatch 02/24/17 02/24/17 06:25 06:25 WBC RBC Hgb Hct MCV MCHC RDW Plt Count MPV Neutrophils % Lymphocytes % Monocytes % Eosinophils % Basophils % INR 1.20 H PTT (Actin FS) 29.4 Sodium Potassium Chloride Carbon Dioxide Anion Gap BUN Creatinine Creat Clearance w eGFR Random Glucose Lactic Acid 2.305 H* Calcium Phosphorus Magnesium Total Bilirubin AST ALT Alkaline Phosphatase Creatine Kinase Creatine Kinase Index CK-MB (CK-2) CK-MB (CK-2) Rel Index Troponin I B-Natriuretic Peptide Total Protein Albumin Lipase TSH Free T4 Urine Color Urine Appearance Urine pH Ur Specific [place] Urine Protein Urine Glucose (UA) Urine Ketones Urine Blood Urine Nitrite Urine Bilirubin Urine Urobilinogen Ur Leukocyte Esterase Opiates Screen Methadone Screen Barbiturate Screen Phencyclidine Screen Ur Amphetamines Screen MDMA (Ecstasy) Screen Benzodiazepines Screen Cocaine Screen U Marijuana (THC) Screen Alcohol, Quantitative Blood Type Antibody Screen Crossmatch labs noted CIWA Score - CIWA Score Nausea/Vomitin Muscle Tremors: 5 Anxiety: 4-Mod. Anxious/Guarded Agitation: 4-Moderately Restless Paroxysmal Sweats: 3 Orientation: 0-Oriented Tacttile Disturbances: 1-Very Mild Itch/Numbness Auditory Disturbances: 0-None Visual Disturbances: 0-None Headache: 0-None Present CIWA-Ar Total Score: 22 Assessment Plan - Diagnosis (1) Alcohol dependence with uncomplicated withdrawal Status: Acute (2) Upper GI bleed Status: Resolved Comment: discharged 02/27/17 for alcohol detox risk of fall related to volume deficit recovering - Plan Plan: Detox with Librium then refer to rehab - Medication Detox Regimen/Protocol: Librium
--- NOTE | 2017-02-24 13:31 | EKG ---
Test Reason : Blood Pressure : / mmHG Vent. Rate : 127 BPM Atrial Rate : 127 BPM P-R Int : 112 ms QRS Dur : 090 ms QT Int : 312 ms P-R-T Axes : 049 076 047 degrees QTc Int : 453 ms SINUS TACHYCARDIA OTHERWISE NORMAL ECG NO PREVIOUS ECGS AVAILABLE Confirmed by AMY MONTELONGO MD ([id number]) on 02/24/2017 1:31:21 PM Referred By: Confirmed By:AMY MONTELONGO MD
[2017-02-24 13:52] VITALS: BMI 22.8
--- NOTE | 2017-02-24 14:31 | CONSULT ---
Consult Consult Specialty:: PULM/CCM Referred by:: ER Reason for Consultation:: GI Bleed - History of Present Illness Chief Complaint: Vomiting History of Present Illness: 36 M, alcohol abuse (10 to 12 cans of beer daily). Admitted via the ER due to vomiting. (+) dark brown vomitus. No bright blood noted. Patient is a poor historian and most of the info is obtained from the chart. Grossly distended bladder noted on CT and liu was inserted with almost 7 liters output. No sick contacts or travel history. No CP or SOB. Labs noted. Lactic acid trending down. At this point do not suspect bowel ischemia or infectious process. 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) Pulmonary: No: Asthma, COPD, Sleep Apnea Psych: Yes: Addictions (Alcohol) - Past Surgical History Past Surgical History: Yes: None - Alcohol/Substance Use Hx Alcohol Use: Yes (Since the age of 23-LAST DRINK 02/23) Number of Drinks Daily: 10 (10-12 12oz beers daily) History of Substance Use: reports: None - Smoking History Smoking history: Current every day smoker Have you smoked in the past 12 months: Yes Aproximately how many cigarettes per day: 8 - Social History ADL: Independent History of Recent Travel: No Home Medications - Allergies Allergies/Adverse Reactions: Allergies Allergy/AdvReac Type Severity Reaction Status Date / Time egg Allergy Intermediate Vomiting Verified 02/23/17 20:26 - Home Medications Home Medications: Ambulatory Orders Doxylamine Succinate [Unisom Sleep Aid] 25 mg PO ASDIR 02/23/17 Physical Exam Vital Signs: Vital Signs Temperature 98 F 02/24/17 12:39 Pulse Rate 98 H 02/24/17 13:44 Respiratory Rate 18 02/24/17 13:44 Blood Pressure 133/87 02/24/17 13:44 O2 Sat by Pulse Oximetry (%) 98 02/24/17 13:44 Constitutional: Yes: Poor Hygeine Eyes: Yes: Conjunctiva Clear, EOM Intact HENT: Yes: Atraumatic, Normocephalic Neck: Yes: Supple, Trachea Midline Cardiovascular: Yes: Regular Rate and Rhythm Respiratory: Yes: CTA Bilaterally Gastrointestinal: Yes: Distention, Tenderness, Vomiting. No: Ascites, Palpable Mass, Pulsatile Mass, Tenderness, Rebound ...Rectal Exam: Yes: Deferred Renal/: Yes: Other (liu) Musculoskeletal: Yes: WNL Extremities: Yes: WNL Edema: No Peripheral Pulses WNL: Yes Integumentary: Yes: WNL Neurological: Yes: Alert Psychiatric: Yes: Alert, Oriented Labs: CBC, BMP 02/24/17 06:25 02/24/17 06:25 Imaging - Results Chest X-ray: Report Reviewed, Image Reviewed Cat Scan: Report Reviewed, Image Reviewed Problem List - Problems (1) Alcohol dependence Code(s): F10.20 - ALCOHOL DEPENDENCE, UNCOMPLICATED (2) Alcohol withdrawal Code(s): F10.239 - ALCOHOL DEPENDENCE WITH WITHDRAWAL, UNSPECIFIED Qualifiers : Complication of substance-induced condition: uncomplicated Qualified Code(s): F10.230 - Alcohol dependence with withdrawal, uncomplicated (3) Lactic acidosis Code(s): E87.2 - ACIDOSIS (4) Tachycardia Code(s): R00.0 - TACHYCARDIA, UNSPECIFIED (5) Urinary retention Code(s): R33.9 - RETENTION OF URINE, UNSPECIFIED Assessment/Plan Monitor UP -> May need to replace some volume Noted empiric ABX O2 as needed Bravo-culture Monitor for withdrawal Noted addiction consult Replace lytes Thiamine/folic acid Patient to monitored on 4W, please call for worsening of status Will follow Thank you. Dr Childress
--- NOTE | 2017-02-24 15:02 | PN ---
Physical Exam: SUBJECTIVE: Patient seen and examined Patient resting in bed, NAD. afebrile and hemodynamically stable. Veronique cute events. No more vomiting. several episodes of nonbloody diarrhea in ed. urinating several times. was initially straight cathed 2000cc urine. deneis f/ c. states he is anxious and sweaty. Denies visual or auditory hallucinations or sz activiry. complains of pelvic pain. Denies chest pain or sob. States he will think about rehab. OBJECTIVE: Vital Signs Period Temp Pulse Resp BP Sys/Padilla Pulse Ox Last 24 Hr 98 F-99 F 84-98 18-23 128-138/74-91 98-100 GENERAL: The patient is awake, alert, and fully oriented, lethargic, diaphoretic. HEAD: Normal with no signs of trauma. EYES: PERRL, extraocular movements intact, sclera anicteric, conjunctiva clear. No ptosis. no nystagmus ENT: moist mucous membranes. NECK: supple. LUNGS: Breath sounds equal, clear to auscultation bilaterally HEART: Regular rate and rhythm, S1, S2 grade 2 systolic ej murmur ABDOMEN: mildly distended, diffusely tender especially pelvic region, no rebound no guardng, no organomegaly. distended bldder. No ascites or caput medusa Rectal exam: no lesions, sphincter tone intact, Stool guaiac negative EXTREMITIES: 2+ pulses, warm, well-perfused, no edema. NEUROLOGICAL: Cranial nerves II through XII grossly intact. Normal speech, gait not observed. fine tremors in hands PSYCH: Normal mood, normal affect. SKIN: Warm, dry Laboratory Results - last 24 hr 02/24/17 02/24/17 02/24/17 03:00 03:00 03:50 WBC RBC Hgb Hct MCV MCHC RDW Plt Count MPV Neutrophils % Lymphocytes % Monocytes % Eosinophils % Basophils % INR PTT (Actin FS) Sodium Potassium Chloride Carbon Dioxide Anion Gap BUN Creatinine Creat Clearance w eGFR Random Glucose Lactic Acid 2.580 H* Calcium Phosphorus Magnesium Total Bilirubin AST ALT Alkaline Phosphatase Total Protein Albumin Urine Color Straw Urine Appearance Clear Urine pH 5.0 Ur Specific Walsh 1.012 Urine Protein Negative Urine Glucose (UA) 1+ H Urine Ketones 1+ H Urine Blood Negative Urine Nitrite Negative Urine Bilirubin Negative Urine Urobilinogen Negative Ur Leukocyte Esterase Negative Opiates Screen Negative Methadone Screen Negative Barbiturate Screen Negative Phencyclidine Screen Negative Ur Amphetamines Screen Negative MDMA (Ecstasy) Screen Negative Benzodiazepines Screen Negative Cocaine Screen Negative U Marijuana (THC) Screen Negative 02/24/17 02/24/17 02/24/17 06:25 06:25 06:25 WBC 7.1 RBC 3.20 L Hgb 9.3 L Hct 27.8 L MCV 87.1 MCHC 33.3 RDW 14.8 Plt Count 183 D MPV 6.8 L Neutrophils % 62.1 Lymphocytes % 27.5 D Monocytes % 8.9 Eosinophils % 0.8 D Basophils % 0.7 INR PTT (Actin FS) Sodium 143 Potassium 4.1 Chloride 107 D Carbon Dioxide 24 Anion Gap 12 BUN 13 Creatinine 0.7 D Creat Clearance w eGFR > 60 Random Glucose 114 H D Lactic Acid 2.305 H* Calcium 6.9 L* Phosphorus 1.6 L Magnesium 1.6 L Total Bilirubin 0.9 D AST 36 D ALT 39 D Alkaline Phosphatase 58 D Total Protein 5.4 L D Albumin 3.0 L D Urine Color Urine Appearance Urine pH Ur Specific Walsh Urine Protein Urine Glucose (UA) Urine Ketones Urine Blood Urine Nitrite Urine Bilirubin Urine Urobilinogen Ur Leukocyte Esterase Opiates Screen Methadone Screen Barbiturate Screen Phencyclidine Screen Ur Amphetamines Screen MDMA (Ecstasy) Screen Benzodiazepines Screen Cocaine Screen U Marijuana (THC) Screen 02/24/17 02/24/17 06:25 12:11 WBC RBC Hgb Hct MCV MCHC RDW Plt Count MPV Neutrophils % Lymphocytes % Monocytes % Eosinophils % Basophils % INR 1.20 H PTT (Actin FS) 29.4 Sodium Potassium Chloride Carbon Dioxide Anion Gap BUN Creatinine Creat Clearance w eGFR Random Glucose Lactic Acid 2.251 H* Calcium Phosphorus Magnesium Total Bilirubin AST ALT Alkaline Phosphatase Total Protein Albumin Urine Color Urine Appearance Urine pH Ur Specific Walsh Urine Protein Urine Glucose (UA) Urine Ketones Urine Blood Urine Nitrite Urine Bilirubin Urine Urobilinogen Ur Leukocyte Esterase Opiates Screen Methadone Screen Barbiturate Screen Phencyclidine Screen Ur Amphetamines Screen MDMA (Ecstasy) Screen Benzodiazepines Screen Cocaine Screen U Marijuana (THC) Screen Active Medications Generic Name Dose Route Start Last Admin Trade Name Freq PRN Reason Stop Dose Admin Ceftriaxone Sodium 2 gm 02/24/17 10:45 02/24/17 11:41 Rocephin 2gm Ivpb (Pre-Docked) IVPB 2 gm DAILY OWEN Administration Protocol Chlordiazepoxide HCl 25 mg 02/24/17 04:42 Librium - PO 02/27/17 04:41 Q4H PRN WITHDRAWAL(CONT SUBST) Chlordiazepoxide HCl 50 mg 02/24/17 05:00 02/24/17 11:39 Librium - PO 02/24/17 23:01 50 mg [id number] OWEN Administration Chlordiazepoxide HCl 25 mg 02/25/17 05:00 Librium - PO 02/25/17 23:01 [id number] OWEN Chlordiazepoxide HCl 15 mg 02/26/17 05:00 Librium - PO 02/26/17 23:01 [id number] OWEN Chlorhexidine Gluconate 1 applic 02/24/17 22:00 Hibiclens For Decolonization - TP HS OWEN Folic Acid 1 mg 02/24/17 10:00 02/24/17 09:27 Folic Acid - PO 1 mg DAILY OWEN Administration Octreotide Acetate 1,200 mcg/ 500 mls @ 20.83 mls/hr 02/23/17 23:30 02/24/17 00 :11 Dextrose IVPB 20.83 mls/hr Q24H OWEN Administration Protocol 50 MCG/HR Pantoprazole Sodium 80 mg/ 100 mls @ 10 mls/hr 02/24/17 02:30 02/24/17 13:15 Sodium Chloride IVPB 10 mls/hr Q10H OWEN Administration 8 MG/HR Sodium Chloride 1,000 mls @ 150 mls/hr 02/24/17 10:03 02/24/17 11:00 Normal Saline - IV 150 mls/hr ASDIR OWEN Administration Metronidazole 100 mls @ 100 mls/hr 02/24/17 10:45 02/24/17 11:45 Flagyl 500mg Premixed Ivpb - IVPB 100 mls/hr Q8H-IV OWEN Administration Mupirocin 1 applic 02/24/17 10:00 Bactroban Ointment (For Decolonization) - NS 03/01/17 09:59 BID OWEN Potassium Phos/Sodium Phos 1 packet 02/24/17 10:00 02/24/17 09:27 Phos-Nak Packet - PO 1 packet BID OWEN Administration Thiamine HCl 100 mg 02/24/17 10:00 02/24/17 09:28 Vitamin B1 - PO 100 mg DAILY OWEN Administration ASSESSMENT/PLAN: 36 y/o M w/hx of alcohol abuse presents to ER after vomiting dark brown colored vomit 5-7x this AM. Last episode had some bright red blood. Never happened before. CXR - no active pulmonary disease Abd CT - There is no free air. There are no obvious gallstones. There is moderate bilateral hydronephrosis. The ureters are ectatic. No renal or ureteral calculi are seen. The urinary bladder is markedly distended. There are no bladder calculi. The large and small bowel is mildly distended with fluid and air. Findings likely indicative of diffuse ileus. The appendix is normal in size. There is no evidence of appendicitis. THIS DOCUMENT HAS BEEN ELECTRONICALLY SIGNED Geoffrey Carias MD Upper GI bleed, Gastric ulcer vs esophageal variceal bleed -Hgb dropped from 12.3 to 8.6, partly dilutional -s/p 1 U pRBC -currenlty stable, no more vomiting or bleeding -trend H/H q6h -PPI drip -octreotide -zofran PRN -GI Consulted (Dr. Fung) for possible scope -critical care consult appreciated -avoid NGT in case of varices -stool guaiac negative -f/u FOBT x 2 -NPO Lactic acidosis -dilated rectul and bowel on CT -possible bowel ischemia vs ileus -prophylactic flagyl and rocephin -NS@175 -trend Urinary retention -very distended bladder on CT -mild hydronephrosis -insert liu and drain no more than 1L of urine at a time to avoid hypotension and hematuria Alcohol Withdrawal -Hx withdrawal sz x 2 -alcohol level : 45.1 -Dr. Foster consult appreciated -Librium protocol -Folic acid and thiamine ppx: SCDs, PPI FEN NS @ 175 ml/hr replete lytes NPO Dispo: telemetry Problem List - Problems (1) Alcohol dependence Code(s): F10.20 - ALCOHOL DEPENDENCE, UNCOMPLICATED (2) Alcohol withdrawal Code(s): F10.239 - ALCOHOL DEPENDENCE WITH WITHDRAWAL, UNSPECIFIED Qualifiers : Complication of substance-induced condition: uncomplicated Qualified Code(s): F10.230 - Alcohol dependence with withdrawal, uncomplicated (3) Ileus Code(s): K56.7 - ILEUS, UNSPECIFIED (4) Lactic acidosis Code(s): E87.2 - ACIDOSIS (5) Tachycardia Code(s): R00.0 - TACHYCARDIA, UNSPECIFIED (6) Tremulousness Code(s): R25.1 - TREMOR, UNSPECIFIED (7) Urinary retention Code(s): R33.9 - RETENTION OF URINE, UNSPECIFIED (8) Upper GI bleed Code(s): K92.2 - GASTROINTESTINAL HEMORRHAGE, UNSPECIFIED Visit type - Emergency Visit Emergency Visit: Yes ED Registration Date: 02/24/17 Care time: The patient presented to the Emergency Department on the above date and was hospitalized for further evaluation of their emergent condition. - New Patient This patient is new to me today: Yes Date on this admission: 02/24/17 - Critical Care Critical Care patient: No - Discharge Referral Referred to [facility] Med P.C.: No
[2017-02-24] MEDS ORDERED: ONDANSETRON 4 MG/2 ML VIAL IVPUSH PRN (15:13)
[2017-02-24] MEDS: SODIUM CHLORIDE 1,000 ML IV SCH ×3 (15:32→21:18)
[2017-02-24 16:30] LABS: MCH 29.4 pg (25.7-33.7); MCHC 34.3 g/dl (32.0-35.9); MEAN CELL VOLUME 85.7 fl (80-96); MEAN PLT VOLUME 7.2 fl (7.5-11.1); PLATELET COUNT 193 K/MM3 (134-434); WHITE BLOOD COUNT 6.3 K/mm3 (4.0-10.0)
--- NOTE | 2017-02-24 20:21 | CON.GI ---
Consult Consult Specialty:: gastroenterology Referred by:: hospitalist - History of Present Illness History of Present Illness: 36 y/o alcoholic was admitted because of impending DT's and coffe ground vomitus. He continued to have tremors and shakes, diaphoresis. There is no melena and no rectal bleeding. - Past Medical History [employer]: Yes: Seizure (Alcohol withdrawal seizures x2) Pulmonary: No: Asthma, COPD, Sleep Apnea Psych: Yes: Addictions (Alcohol) - Past Surgical History Past Surgical History: Yes: None - Alcohol/Substance Use Hx Alcohol Use: Yes (Since the age of 23-LAST DRINK 02/23) Number of Drinks Daily: 10 (10-12 12oz beers daily) History of Substance Use: reports: None - Smoking History Smoking history: Current every day smoker Have you smoked in the past 12 months: Yes Aproximately how many cigarettes per day: 8 - Social History ADL: Independent History of Recent Travel: No Home Medications - Allergies Allergies/Adverse Reactions: Allergies Allergy/AdvReac Type Severity Reaction Status Date / Time egg Allergy Intermediate Vomiting Verified 02/23/17 20:26 - Home Medications Home Medications: Ambulatory Orders Doxylamine Succinate [Unisom Sleep Aid] 25 mg PO ASDIR 02/23/17 Physical Exam-GI Vital Signs: Vital Signs Temperature 98.8 F 02/24/17 17:00 Pulse Rate 81 02/24/17 17:00 Respiratory Rate 18 02/24/17 17:00 Blood Pressure 130/70 02/24/17 17:00 O2 Sat by Pulse Oximetry (%) 98 02/24/17 13:44 Constitutional: Yes: Well Nourished Eyes: Yes: Conjunctiva Clear HENT: Yes: Atraumatic Neck: Yes: Supple Cardiovascular: Yes: Regular Rate and Rhythm Respiratory: Yes: CTA Bilaterally ...Palpate: Yes: Soft. No: Firm/Rigid, Guarding, Hepatomegaly, Mass, Pulsatile Mass, Splenomegaly, Tenderness, Tenderness, Epigastium, Tenderness, Rebound Neurological: Yes: Alert, Oriented Labs: CBC, BMP 02/24/17 16:00 02/24/17 06:25 INR, PTT INR 1.20 (0.82-1.09) H 02/24/17 06:25 Problem List - Problems (1) Upper GI bleed Assessment/Plan: --stable R> continue Protonix drip continue to detox will need EGD once withdrawal symptoms are resolved keep well hydrated Code(s): K92.2 - GASTROINTESTINAL HEMORRHAGE, UNSPECIFIED
[2017-02-24] MEDS ORDERED: CHLORHEXIDINE GLUCONATE 4% CLEANSER FOR DECOLONIZATION TP SCH (22:00)
[2017-02-25] MEDS: METOCLOPRAMIDE HCL INJECTION 10 MG/2 ML VIAL IVPB SCH ×3 (01:06→18:18)
[2017-02-25] MEDS: METRONIDAZOLE 500 MG PREMIXED 100 ML IVPB SCH ×2 (01:06→09:23)
[2017-02-25 02:07] LABS: MCH 29.5 pg (25.7-33.7); MCHC 33.9 g/dl (32.0-35.9); MEAN PLT VOLUME 6.8 fl (7.5-11.1); PLATELET COUNT 196 K/MM3 (134-434); RDW 14.8 % (11.9-15.9); WHITE BLOOD COUNT 5.7 K/mm3 (4.0-10.0)
[2017-02-25] MEDS: chlordiazePOXIDE HCL 25 MG CAPSULE PO SCH ×4 (05:40→22:17)
[2017-02-25 06:53] LABS: MCH 29.4 pg (25.7-33.7); MCHC 33.9 g/dl (32.0-35.9); MEAN CELL VOLUME 86.8 fl (80-96); MEAN PLT VOLUME 7.4 fl (7.5-11.1); PLATELET COUNT 173 K/MM3 (134-434); RDW 14.8 % (11.9-15.9); WHITE BLOOD COUNT 5.6 K/mm3 (4.0-10.0)
[2017-02-25 07:08] LABS: ALBUMIN 3.1 g/dl (3.4-5.0); ALK PHOS 63 U/L (45-117); ANION GAP 9 (8-16); BILIRUBIN,TOTAL 0.9 mg/dL (0.2-1.0); CALCIUM 7.8 mg/dL (8.5-10.1); CO2 30 mmol/L (21-32); CREATININE 0.6 mg/dL (0.7-1.3); GLUCOSE,RANDOM 98 mg/dL (74-106); MAGNESIUM 1.9 mg/dL (1.8-2.4); SGOT/AST 58 U/L (15-37); SGPT/ALT 42 U/L (12-78); TOT PROT 5.8 g/dl (6.4-8.2)
[2017-02-25] MEDS ORDERED: KCL 10 MEQ IVPB 100 ML IVPB SCH (09:15)
[2017-02-25] MEDS: THIAMINE HCL 100 MG TABLET (FP) PO SCH (09:23)
[2017-02-25] MEDS: FOLIC ACID 1 MG TABLET (FP) PO SCH (09:23)
[2017-02-25] MEDS: cefTRIAXone 2 GM/100 ML BAG (PRE-DOCKED) IVPB SCH (09:23)
[2017-02-25] MEDS: PANTOPRAZOLE SODIUM 80 MG in SODIUM CHLORIDE 100 ML IVPB SCH ×2 (09:23→18:18)
[2017-02-25] MEDS: NAPH,MB-DB/K PH,MBDB POWDER PACKET PO SCH ×2 (09:24→22:19)
--- NOTE | 2017-02-25 09:34 | PN ---
Teaching Attending Note Name of Resident: Hayley Livingston ATTENDING PHYSICIAN STATEMENT I saw and evaluated the patient. I reviewed the resident's note and discussed the case with the resident. I agree with the resident's findings and plan as documented. Patient continues to have tremors, no chest pain, no shortness of breath, patient drinks around 20 beers per day([employer]) Vital Signs Temperature 98.1 F 02/25/17 07:44 Pulse Rate 91 H 02/25/17 07:44 Respiratory Rate 20 02/25/17 07:44 Blood Pressure 112/59 02/25/17 07:44 O2 Sat by Pulse Oximetry (%) 97 02/24/17 21:00 CBCD WBC 5.6 K/mm3 (4.0-10.0) 02/25/17 05:35 RBC 3.33 M/mm3 (4.00-5.60) L 02/25/17 05:35 Hgb 9.8 GM/dL (11.7-16.9) L 02/25/17 05:35 Hct 28.9 % (35.4-49) L 02/25/17 05:35 MCV 86.8 fl (80-96) 02/25/17 05:35 MCHC 33.9 g/dl (32.0-35.9) 02/25/17 05:35 RDW 14.8 % (11.9-15.9) 02/25/17 05:35 Plt Count 173 K/MM3 (134-434) 02/25/17 05:35 MPV 7.4 fl (7.5-11.1) L 02/25/17 05:35 CMP Sodium 143 mmol/L (136-145) 02/25/17 05:35 Potassium 3.4 mmol/L (3.5-5.1) L 02/25/17 05:35 Chloride 104 mmol/L (98-107) 02/25/17 05:35 Carbon Dioxide 30 mmol/L (21-32) D 02/25/17 05:35 Anion Gap 9 (8-16) 02/25/17 05:35 BUN 6 mg/dL (7-18) L D 02/25/17 05:35 Creatinine 0.6 mg/dL (0.7-1.3) L 02/25/17 05:35 Creat Clearance w eGFR > 60 (>60) 02/25/17 05:35 Random Glucose 98 mg/dL (74-106) 02/25/17 05:35 Calcium 7.8 mg/dL (8.5-10.1) L 02/25/17 05:35 Total Bilirubin 0.9 mg/dL (0.2-1.0) 02/25/17 05:35 AST 58 U/L (15-37) H D 02/25/17 05:35 ALT 42 U/L (12-78) 02/25/17 05:35 Alkaline Phosphatase 63 U/L (45-117) 02/25/17 05:35 Total Protein 5.8 g/dl (6.4-8.2) L 02/25/17 05:35 Albumin 3.1 g/dl (3.4-5.0) L 02/25/17 05:35 CARDIAC ENZYMES Creatine Kinase 151 IU/L (39-308) 02/23/17 21:00 Troponin I < 0.02 ng/ml (0.00-0.05) 02/23/17 21:00 Current Medications Generic Name Dose Route Start Last Admin Trade Name Freq PRN Reason Stop Dose Admin Ceftriaxone Sodium 2 gm 02/24/17 10:45 02/25/17 09:23 Rocephin 2gm Ivpb (Pre-Docked) IVPB 2 gm DAILY OWEN Administration Protocol Chlordiazepoxide HCl 25 mg 02/24/17 04:42 02/24/17 15:56 Librium - PO 02/27/17 04:41 25 mg Q4H PRN Administration WITHDRAWAL(CONT SUBST) Chlordiazepoxide HCl 25 mg 02/25/17 05:00 02/25/17 05:40 Librium - PO 02/25/17 23:01 25 mg [id number] OWEN Administration Chlordiazepoxide HCl 15 mg 02/26/17 05:00 Librium - PO 02/26/17 23:01 [id number] OWEN Folic Acid 1 mg 02/24/17 10:00 02/25/17 09:23 Folic Acid - PO 1 mg DAILY OWEN Administration Pantoprazole Sodium 80 mg/ 100 mls @ 10 mls/hr 02/24/17 02:30 02/25/17 09:23 Sodium Chloride IVPB Not Given Q10H OWEN 8 MG/HR Metronidazole 100 mls @ 100 mls/hr 02/24/17 10:45 02/25/17 09:23 Flagyl 500mg Premixed Ivpb - IVPB 100 mls/hr Q8H-IV OWEN Administration Sodium Chloride 1,000 mls @ 150 mls/hr 02/24/17 20:15 02/24/17 21:18 Normal Saline - IV 02/27/17 02:54 Not Given ASDIR OWEN Potassium Chloride 100 mls @ 100 mls/hr 02/25/17 09:15 02/25/17 09:22 Potassium Chloride 10 Meq Premix Ivpb - IVPB 02/25/17 10:14 100 mls/hr Q60M OWEN Administration Metoclopramide HCl 10 mg 02/25/17 02:00 02/25/17 09:23 Reglan Injection - IVPB 10 mg Q8H-IV OWEN Administration Potassium Phos/Sodium Phos 1 packet 02/24/17 10:00 02/25/17 09:24 Phos-Nak Packet - PO 1 packet BID OWEN Administration Thiamine HCl 100 mg 02/24/17 10:00 02/25/17 09:23 Vitamin B1 - PO 100 mg DAILY OWEN Administration Home Medications Medication Instructions Recorded Doxylamine Succinate [Unisom Sleep 25 mg PO ASDIR 02/23/17 Aid] EXTRemeties: positive for tremors ASSESSMENT AND PLAN: 36 y/o man with h/o alcoholism , withdrawal seizures who rpesented with coffee ground emesis and lower abd pain, was found to have lactic acidosis . # Acute Upper GI bleed. likely from erosive gastritis from alcohol use. # Lactic acidosis : no signs of infection . # colon distention : not sure of etiology. possible due to Urinary retention GI help appreciated # Urinary retention : not sure of cause , could be bowel etiology that triggered it, continue bladder scan, remove liu # Alcohol withdrawal : no signs of Wernicke's . DVT Px: SCDs no AC for now since bleeding.
[2017-02-25] MEDS ORDERED: POTASSIUM PHOSPHATE 30 MM in SODIUM CHLORIDE 500 ML IVPB ONE (11:55)
--- NOTE | 2017-02-25 16:50 | PN ---
Physical Exam: SUBJECTIVE: Patient seen and examined Patient resting in bed, NAD. afebrile and hemodynamically stable. No acute events. No more vomiting, still nauseous. No BM. liu in place draining almost 9L over 24 hr. feels hungry. feels better. Less anxious and sweaty, slept fairly well. Still has diffuse abd pain, although improved. Denies visual or auditory hallucinations or sz activiry. Denies chest pain or sob. States he will think about rehab. No events on telemetry. OBJECTIVE: Vital Signs Period Temp Pulse Resp BP Sys/Padilla Pulse Ox Last 24 Hr 97.8 F-98.8 F 72-91 18-22 112-131/59-85 97-98 GENERAL: The patient is awake, alert, and fully oriented, lethargic, diaphoretic. HEAD: Normal with no signs of trauma. EYES: PERRL, extraocular movements intact, sclera anicteric, conjunctiva clear. No ptosis. no nystagmus ENT: moist mucous membranes. NECK: supple. LUNGS: Breath sounds equal, clear to auscultation bilaterally HEART: Regular rate and rhythm, S1, S2 grade 2 systolic ej murmur ABDOMEN: mildly distended, mildly tender especially pelvic region, no rebound no guarding, no organomegaly. no mass. No ascites or caput medusa EXTREMITIES: 2+ pulses, warm, well-perfused, no edema. NEUROLOGICAL: Cranial nerves II through XII grossly intact. Normal speech, gait not observed. fine tremors in hands PSYCH: Normal mood, normal affect. SKIN: Warm, dry Laboratory Results - last 24 hr 02/24/17 02/24/17 02/25/17 16:00 16:00 02:00 WBC 5.7 RBC 3.39 L Hgb 10.0 L Hct 29.5 L MCV 87.0 MCHC 33.9 RDW 14.8 Plt Count 196 MPV 6.8 L Sodium Potassium Chloride Carbon Dioxide Anion Gap BUN Creatinine Creat Clearance w eGFR Random Glucose Lactic Acid 1.686 1.653 Calcium Phosphorus Magnesium Total Bilirubin AST ALT Alkaline Phosphatase Total Protein Albumin 02/25/17 02/25/17 02/25/17 05:35 05:35 05:35 WBC 5.6 RBC 3.33 L Hgb 9.8 L Hct 28.9 L MCV 86.8 MCHC 33.9 RDW 14.8 Plt Count 173 MPV 7.4 L Sodium 143 Potassium 3.4 L Chloride 104 Carbon Dioxide 30 D Anion Gap 9 BUN 6 L D Creatinine 0.6 L Creat Clearance w eGFR > 60 Random Glucose 98 Lactic Acid 0.691 Calcium 7.8 L Phosphorus 2.0 L D Magnesium 1.9 Total Bilirubin 0.9 AST 58 H D ALT 42 Alkaline Phosphatase 63 Total Protein 5.8 L Albumin 3.1 L Active Medications Generic Name Dose Route Start Last Admin Trade Name Freq PRN Reason Stop Dose Admin Chlordiazepoxide HCl 25 mg 02/24/17 04:42 02/24/17 15:56 Librium - PO 02/27/17 04:41 25 mg Q4H PRN Administration WITHDRAWAL(CONT SUBST) Chlordiazepoxide HCl 25 mg 02/25/17 05:00 02/25/17 11:53 Librium - PO 02/25/17 23:01 25 mg [id number] OWEN Administration Chlordiazepoxide HCl 15 mg 02/26/17 05:00 Librium - PO 02/26/17 23:01 [id number] OWEN Folic Acid 1 mg 02/24/17 10:00 02/25/17 09:23 Folic Acid - PO 1 mg DAILY OWEN Administration Pantoprazole Sodium 80 mg/ 100 mls @ 10 mls/hr 02/24/17 02:30 02/25/17 09:23 Sodium Chloride IVPB Not Given Q10H OWEN 8 MG/HR Sodium Chloride 1,000 mls @ 150 mls/hr 02/24/17 20:15 02/24/17 21:18 Normal Saline - IV 02/27/17 02:54 Not Given ASDIR OWEN Potassium Phosphate 30 mm/ 510 mls @ 85 mls/hr 02/25/17 11:55 02/25/17 14:23 Sodium Chloride IVPB 02/25/17 17:54 85 mls/hr ONCE ONE Administration 30 MM/6 HR Metoclopramide HCl 10 mg 02/25/17 02:00 02/25/17 09:23 Reglan Injection - IVPB 10 mg Q8H-IV OWEN Administration Potassium Phos/Sodium Phos 1 packet 02/24/17 10:00 02/25/17 09:24 Phos-Nak Packet - PO 1 packet BID OWEN Administration Thiamine HCl 100 mg 02/24/17 10:00 02/25/17 09:23 Vitamin B1 - PO 100 mg DAILY OWEN Administration ASSESSMENT/PLAN: 36 y/o M w/hx of alcohol abuse presents to ER after vomiting dark brown colored vomit 5-7x this AM. Last episode had some bright red blood. Never happened before. CXR - no active pulmonary disease Abd CT - There is no free air. There are no obvious gallstones. There is moderate bilateral hydronephrosis. The ureters are ectatic. No renal or ureteral calculi are seen. The urinary bladder is markedly distended. There are no bladder calculi. The large and small bowel is mildly distended with fluid and air. Findings likely indicative of diffuse ileus. The appendix is normal in size. There is no evidence of appendicitis. THIS DOCUMENT HAS BEEN ELECTRONICALLY SIGNED Geoffrey Carias MD Upper GI bleed, -Gastric ulcer vs esophageal variceal bleed -Hgb dropped 9.8 stable -s/p 1 U pRBC this admission -currenlty stable, no more vomiting or bleeding -trend H/H -PPI drip for another 24 hr -octreotide -zofran PRN -GI Consulted Dr. Fung: scope when withdrawal resolves -critical care consult appreciated -avoid NGT in case of varices -stool guaiac negative -f/u FOBT x 2 -NPO for another day Lactic acidosis -dilated rectum and bowel on CT -resolved -Stop abx -NS@150 x 3 bags total Urinary retention -very distended bladder on CT on admission -mild hydronephrosis -liu drained 9 L over 24 hr -Kidney and bladder US -remove liu at noon and void check, if not voiding by 3 pm, bladder scan and possibly insert liu Alcohol Withdrawal -Hx withdrawal sz x 2 -alcohol level : 45.1 -Dr. Foster consult appreciated -Librium protocol day 2 -Folic acid and thiamine ppx: SCDs, PPI FEN NS @ 150 ml/hr replete lytes NPO Dispo: med [place]kay Problem List - Problems (1) Alcohol dependence Code(s): F10.20 - ALCOHOL DEPENDENCE, UNCOMPLICATED (2) Alcohol withdrawal Code(s): F10.239 - ALCOHOL DEPENDENCE WITH WITHDRAWAL, UNSPECIFIED Qualifiers : Complication of substance-induced condition: uncomplicated Qualified Code(s): F10.230 - Alcohol dependence with withdrawal, uncomplicated (3) Ileus Code(s): K56.7 - ILEUS, UNSPECIFIED (4) Lactic acidosis Code(s): E87.2 - ACIDOSIS (5) Tachycardia Code(s): R00.0 - TACHYCARDIA, UNSPECIFIED (6) Tremulousness Code(s): R25.1 - TREMOR, UNSPECIFIED (7) Urinary retention Code(s): R33.9 - RETENTION OF URINE, UNSPECIFIED (8) Upper GI bleed Code(s): K92.2 - GASTROINTESTINAL HEMORRHAGE, UNSPECIFIED Visit type - Emergency Visit Emergency Visit: Yes ED Registration Date: 02/24/17 Care time: The patient presented to the Emergency Department on the above date and was hospitalized for further evaluation of their emergent condition. - New Patient This patient is new to me today: No - Critical Care Critical Care patient: No - Discharge Referral Referred to [facility] Med P.C.: No
--- NOTE | 2017-02-25 19:06 | PN ---
GI Progress Note Subjective: Patient off floor at [facility] pulled but high residual so for renal/bladder sono He is still somewhat tremulous per nurse, but much improved - Objective Vital Signs: Vital Signs Temperature 98.8 F 02/25/17 16:27 Pulse Rate 86 02/25/17 16:27 Respiratory Rate 22 02/25/17 16:27 Blood Pressure 112/64 02/25/17 16:27 O2 Sat by Pulse Oximetry (%) 98 02/25/17 08:00 Labs: CBC, BMP 02/25/17 05:35 02/25/17 05:35 INR, PTT INR 1.20 (0.82-1.09) H 02/24/17 06:25 Assessment/Plan Start diet Earlier bleed likely secondary to Arely-Kay tear. No bleed since admission Hgb stable Will do EGD Thursday, when DT's have fully resolved Change protonix to 40 IV daily
[2017-02-25] MEDS: MUPIROCIN 2% TOPICAL OINTMENT FOR DECOLONIZATION NS SCH ×2 (21:46→21:47)
[2017-02-25] MEDS: SODIUM CHLORIDE 1,000 ML IV SCH (22:19)
[2017-02-26] MEDS: METOCLOPRAMIDE HCL INJECTION 10 MG/2 ML VIAL IVPB SCH ×3 (03:42→17:19)
[2017-02-26] MEDS: chlordiazePOXIDE 5 MG CAPSULE PO SCH ×4 (06:32→22:01)
[2017-02-26 07:28] LABS: MCH 29.5 pg (25.7-33.7); MEAN CELL VOLUME 86.6 fl (80-96); MEAN PLT VOLUME 7.7 fl (7.5-11.1); PLATELET COUNT 170 K/MM3 (134-434); RDW 15.3 % (11.9-15.9); WHITE BLOOD COUNT 5.7 K/mm3 (4.0-10.0)
[2017-02-26 08:11] LABS: ALBUMIN 3.2 g/dl (3.4-5.0); ANION GAP 9 (8-16); CO2 27 mmol/L (21-32); GLUCOSE,RANDOM 76 mg/dL (74-106); MAGNESIUM 2.1 mg/dL (1.8-2.4)
[2017-02-26 08:15] LABS: ALK PHOS 72 U/L (45-117); BILIRUBIN,TOTAL 0.5 mg/dL (0.2-1.0); CREATININE 0.6 mg/dL (0.7-1.3); PHOSPHOROUS 3.2 mg/dL (2.5-4.9); SGOT/AST 42 U/L (15-37); SGPT/ALT 41 U/L (12-78); TOT PROT 6.2 g/dl (6.4-8.2)
[2017-02-26] MEDS: FOLIC ACID 1 MG TABLET (FP) PO SCH (09:27)
[2017-02-26] MEDS: NAPH,MB-DB/K PH,MBDB POWDER PACKET PO SCH ×2 (09:27→21:05)
[2017-02-26] MEDS: THIAMINE HCL 100 MG TABLET (FP) PO SCH (09:27)
[2017-02-26] MEDS ORDERED: PANTOPRAZOLE SODIUM 100 ML IVPB SCH (10:00)
[2017-02-26] MEDS: SODIUM CHLORIDE 1,000 ML IV SCH (11:20)
[2017-02-26] MEDS ORDERED: SODIUM CHLORIDE 1,000 ML IV SCH (12:00)
--- NOTE | 2017-02-26 12:31 | MSN ---
Progress Note (short form) - Note Progress Note: Saw patient this AM. Patient was in no apparent distress and slept comfortably last night. Patient voided 88 cc of urine at 7pm last night. Last bladder scan done @ 6am shows 450cc of urine in bladder. Patient still complains of pain in the lower abdomen (2/10) but it has improved from yesterday (4/). Patient states he feels lightheaded only when he gets up from bed. Patient does still have mild tremors but they have decreased from yesterday. Patient denies F/C, N/ V, shortness of breath, chest pain, headaches. GI has been consulted. They have agreed to do an EGD tomorrow when patient's withdrawal symptoms have ended. Increased patient's fluids to 200 cc/hr and increased patient's Librium dosaging. Dr. Azael Silveira has been consulted for patient's chronic alcoholism Current Medications Generic Name Dose Route Start Last Admin Trade Name Freq PRN Reason Stop Dose Admin Chlordiazepoxide HCl 25 mg 02/24/17 04:42 02/24/17 15:56 Librium - PO 02/27/17 04:41 25 mg Q4H PRN Administration WITHDRAWAL(CONT SUBST) Chlordiazepoxide HCl 25 mg 02/26/17 11:57 Librium - PO 02/26/17 23:01 [id number] OWEN Folic Acid 1 mg 02/24/17 10:00 02/26/17 09:27 Folic Acid - PO 1 mg DAILY OWEN Administration Pantoprazole Sodium 100 mls @ 200 mls/hr 02/26/17 10:00 02/26/17 09:27 Protonix 40mg Ivpb (Pre-Docked) IVPB 200 mls/hr DAILY OWEN Administration Sodium Chloride 1,000 mls @ 125 mls/hr 02/26/17 12:00 Normal Saline - IV ASDIR OWEN Metoclopramide HCl 10 mg 02/25/17 02:00 02/26/17 09:27 Reglan Injection - IVPB 10 mg Q8H-IV OWEN Administration Potassium Phos/Sodium Phos 1 packet 02/24/17 10:00 02/26/17 09:27 Phos-Nak Packet - PO 1 packet BID OWEN Administration Thiamine HCl 100 mg 02/24/17 10:00 02/26/17 09:27 Vitamin B1 - PO 100 mg DAILY OWEN Administration Vital Signs Period Temp Pulse Resp BP Sys/Padilla Pulse Ox Last 24 Hr 97.5 F-98.8 F 71-86 18-22 103-112/62-65 99-100 PHYSICAL EXAM GENERAL: The patient is alert, oriented. In no apparent distress HEAD: Normal with no signs of trauma. EYES: PERRLA, extraocular movements intact, conjunctiva clear NECK: Trachea midline, No JVD, no signs of trauma LUNGS: Equal breath sounds BL, no wheezes, rhonchi HEART: Regular rate and rhythm, S1, S2. Grade 2/6 systolic flow murmur ABDOMEN: Soft, TTP with 2/10 pain in LLQ, no rebound, guarding. Normoactive bowel sounds. EXTREMITIES: 2+ pulses, warm, well-perfused, no edema. NEUROLOGICAL: head of marketing analytics intact. Normal speech, gait not observed. mild tremors in hands PSYCH: Normal mood, normal affect. SKIN: Warm, dry, no signs of trauma CXR: No acute lung pathology Renal and bladder ultrasound: BL Kidneys seem unremarkable, Normal sized prostate gland ASSESSMENT AND PLAN: 36 y/o M with PMHx of Chronic Alcohol Abuse and Alcohol Withdrawals admitted for hemoptysis secondary to Upper GI bleed 1. Hemoptysis secondary to Upper GI Bleed -Likely Gastritis - Hb stable at 9.6 -trend H/H -PPI drip to be discontinued -Patient has no episodes of vomiting or nausea since admission -Reglan IV for nausea -GI Consulted: EGD, tomorrow, when tremors resolve -Pt tolerating low sodium diet, no BMs yet -Abdominal X-ray ordered 2. Urinary retention -Pt urinated once last night @7pm, 88 cc or urine output -Last bladder scan showed 450 cc of urine in bladder -Nurses told to help patient to bathroom to urinate when patient feels urge -Continue to monitor I/O 3. Alcohol Withdrawal -alcohol level : 45.1 -Dr Azael Silveira consulted for possible detox after admission -Librium dosage increased, continue for possibly two more days, tremors have not resolved -Folic acid and thiamine to be continued 4. DVT Prophylaxis -Continue Heparin drip 5. FEN NS @ 200 ml/hr replete lytes Patient tolerating low sodium diet, still no BMs Dispo: Med/Surg
--- NOTE | 2017-02-26 15:16 | PN ---
Physical Exam: SUBJECTIVE: Patient seen and examined Patient resting in bed, NAD. afebrile and hemodynamically stable. liu removed yesterday noon. voided at 7 pm and today at 11 am 700 cc. PPi drip stopped, tolerating regular diet. deneis f/c, n/v. No BM since admission. Still tremorous , anxious and sweaty. Denies visual or auditory hallucinations or sz activiry. /10 abd pain. Denies chest pain or sob. OBJECTIVE: Vital Signs Period Temp Pulse Resp BP Sys/Padilla Pulse Ox Last 24 Hr 97.5 F-98.8 F 71-86 18-22 103-112/62-65 99-100 GENERAL: The patient is awake, alert, and fully oriented HEAD: Normal with no signs of trauma. EYES: PERRL, extraocular movements intact, sclera anicteric, conjunctiva clear. No ptosis. no nystagmus ENT: moist mucous membranes. NECK: supple. LUNGS: Breath sounds equal, clear to auscultation bilaterally HEART: Regular rate and rhythm, S1, S2 grade 2 systolic ej murmur ABDOMEN: mildly distended, mildly tender, no rebound no guarding, no organomegaly. no mass. No ascites or caput medusa EXTREMITIES: 2+ pulses, warm, well-perfused, no edema. NEUROLOGICAL: Cranial nerves II through XII grossly intact. Normal speech, gait not observed. fine tremors in hands PSYCH: Normal mood, normal affect. SKIN: Warm, dry Laboratory Results - last 24 hr 02/26/17 02/26/17 05:10 05:10 WBC 5.7 RBC 3.26 L Hgb 9.6 L Hct 28.2 L MCV 86.6 MCHC 34.0 RDW 15.3 Plt Count 170 MPV 7.7 Sodium 143 Potassium 3.6 Chloride 107 Carbon Dioxide 27 Anion Gap 9 BUN 10 D Creatinine 0.6 L Creat Clearance w eGFR > 60 Random Glucose 76 D Calcium 8.0 L Phosphorus 3.2 D Magnesium 2.1 Total Bilirubin 0.5 D AST 42 H D ALT 41 Alkaline Phosphatase 72 Total Protein 6.2 L Albumin 3.2 L Active Medications Generic Name Dose Route Start Last Admin Trade Name Freq PRN Reason Stop Dose Admin Chlordiazepoxide HCl 25 mg 02/24/17 04:42 02/24/17 15:56 Librium - PO 02/27/17 04:41 25 mg Q4H PRN Administration WITHDRAWAL(CONT SUBST) Chlordiazepoxide HCl 25 mg 02/26/17 11:57 Librium - PO 02/26/17 23:01 [id number] OWEN Folic Acid 1 mg 02/24/17 10:00 02/26/17 09:27 Folic Acid - PO 1 mg DAILY OWEN Administration Pantoprazole Sodium 100 mls @ 200 mls/hr 02/26/17 10:00 02/26/17 09:27 Protonix 40mg Ivpb (Pre-Docked) IVPB 200 mls/hr DAILY OWEN Administration Sodium Chloride 1,000 mls @ 125 mls/hr 02/26/17 12:00 Normal Saline - IV ASDIR OWEN Metoclopramide HCl 10 mg 02/25/17 02:00 02/26/17 09:27 Reglan Injection - IVPB 10 mg Q8H-IV OWEN Administration Potassium Phos/Sodium Phos 1 packet 02/24/17 10:00 02/26/17 09:27 Phos-Nak Packet - PO 1 packet BID OWEN Administration Thiamine HCl 100 mg 02/24/17 10:00 02/26/17 09:27 Vitamin B1 - PO 100 mg DAILY OWEN Administration ASSESSMENT/PLAN: 36 y/o M w/hx of alcohol abuse presents to ER after vomiting dark brown colored vomit 5-7x this AM. Last episode had some bright red blood. Never happened before. CXR - no active pulmonary disease Abd CT - There is no free air. There are no obvious gallstones. There is moderate bilateral hydronephrosis. The ureters are ectatic. No renal or ureteral calculi are seen. The urinary bladder is markedly distended. There are no bladder calculi. The large and small bowel is mildly distended with fluid and air. Findings likely indicative of diffuse ileus. The appendix is normal in size. There is no evidence of appendicitis. THIS DOCUMENT HAS BEEN ELECTRONICALLY SIGNED Geoffrey Carias MD Upper GI bleed, -Gastric ulcer vs esophageal variceal bleed -Hgb 9.6 stable -s/p 1 U pRBC this admission -currenlty stable, no more vomiting or bleeding -trend H/H -PPI drip stopped, on IV PPI 40 daily -octreotide stopped -zofran PRN -critical care consult appreciated -stool guaiac negative -f/u FOBT x 2 -tolerating regular diet -GI Consult EGD Fri Lactic acidosis -dilated rectum and bowel on CT -resolved Urinary retention -resolved -very distended bladder on CT on admission -Kidney, bladder, prostate US wnl -liu removed, voiding 700 cc -stop IVF Constipation -feed -PT Alcohol Withdrawal -Hx withdrawal sz x 2 -alcohol level : 45.1 -Dr. Foster consult appreciated -Librium protocol day 3, increase libriun to 25 today, still symptomatic -Folic acid and thiamine ppx: SCDs, PPI FEN No IVF replete lytes NPO Dispo: med kaykay Problem List - Problems (1) Alcohol dependence Code(s): F10.20 - ALCOHOL DEPENDENCE, UNCOMPLICATED (2) Alcohol withdrawal Code(s): F10.239 - ALCOHOL DEPENDENCE WITH WITHDRAWAL, UNSPECIFIED Qualifiers : Complication of substance-induced condition: uncomplicated Qualified Code(s): F10.230 - Alcohol dependence with withdrawal, uncomplicated (3) Ileus Code(s): K56.7 - ILEUS, UNSPECIFIED (4) Lactic acidosis Code(s): E87.2 - ACIDOSIS (5) Tachycardia Code(s): R00.0 - TACHYCARDIA, UNSPECIFIED (6) Tremulousness Code(s): R25.1 - TREMOR, UNSPECIFIED (7) Urinary retention Code(s): R33.9 - RETENTION OF URINE, UNSPECIFIED (8) Upper GI bleed Code(s): K92.2 - GASTROINTESTINAL HEMORRHAGE, UNSPECIFIED Visit type - Emergency Visit Emergency Visit: Yes ED Registration Date: 02/24/17 Care time: The patient presented to the Emergency Department on the above date and was hospitalized for further evaluation of their emergent condition. - New Patient This patient is new to me today: No - Critical Care Critical Care patient: No - Discharge Referral Referred to [facility] Med P.C.: No
--- NOTE | 2017-02-26 19:25 | PN ---
Teaching Attending Note Name of Resident: Hayley Livingston ATTENDING PHYSICIAN STATEMENT I saw and evaluated the patient. I reviewed the resident's note and discussed the case with the resident. I agree with the resident's findings and plan as documented. Patient is better but continue sto have tremors, voided around 700cc today , patient stated that he can't use the urinal just lying in bed. Vital Signs Temperature 98.8 F 02/26/17 17:00 Pulse Rate 70 02/26/17 17:00 Respiratory Rate 18 02/26/17 17:00 Blood Pressure 113/60 02/26/17 17:00 O2 Sat by Pulse Oximetry (%) 99 02/26/17 08:00 CBCD WBC 5.7 K/mm3 (4.0-10.0) 02/26/17 05:10 RBC 3.26 M/mm3 (4.00-5.60) L 02/26/17 05:10 Hgb 9.6 GM/dL (11.7-16.9) L 02/26/17 05:10 Hct 28.2 % (35.4-49) L 02/26/17 05:10 MCV 86.6 fl (80-96) 02/26/17 05:10 MCHC 34.0 g/dl (32.0-35.9) 02/26/17 05:10 RDW 15.3 % (11.9-15.9) 02/26/17 05:10 Plt Count 170 K/MM3 (134-434) 02/26/17 05:10 MPV 7.7 fl (7.5-11.1) 02/26/17 05:10 CMP Sodium 143 mmol/L (136-145) 02/26/17 05:10 Potassium 3.6 mmol/L (3.5-5.1) 02/26/17 05:10 Chloride 107 mmol/L (98-107) 02/26/17 05:10 Carbon Dioxide 27 mmol/L (21-32) 02/26/17 05:10 Anion Gap 9 (8-16) 02/26/17 05:10 BUN 10 mg/dL (7-18) D 02/26/17 05:10 Creatinine 0.6 mg/dL (0.7-1.3) L 02/26/17 05:10 Creat Clearance w eGFR > 60 (>60) 02/26/17 05:10 Random Glucose 76 mg/dL (74-106) D 02/26/17 05:10 Calcium 8.0 mg/dL (8.5-10.1) L 02/26/17 05:10 Total Bilirubin 0.5 mg/dL (0.2-1.0) D 02/26/17 05:10 AST 42 U/L (15-37) H D 02/26/17 05:10 ALT 41 U/L (12-78) 02/26/17 05:10 Alkaline Phosphatase 72 U/L (45-117) 02/26/17 05:10 Total Protein 6.2 g/dl (6.4-8.2) L 02/26/17 05:10 Albumin 3.2 g/dl (3.4-5.0) L 02/26/17 05:10 CARDIAC ENZYMES Creatine Kinase 151 IU/L (39-308) 02/23/17 21:00 Troponin I < 0.02 ng/ml (0.00-0.05) 02/23/17 21:00 Current Medications Generic Name Dose Route Start Last Admin Trade Name Freq PRN Reason Stop Dose Admin Chlordiazepoxide HCl 25 mg 02/24/17 04:42 02/24/17 15:56 Librium - PO 02/27/17 04:41 25 mg Q4H PRN Administration WITHDRAWAL(CONT SUBST) Chlordiazepoxide HCl 25 mg 02/26/17 11:57 02/26/17 17:19 Librium - PO 02/26/17 23:01 25 mg [id number] OWEN Administration Folic Acid 1 mg 02/24/17 10:00 02/26/17 09:27 Folic Acid - PO 1 mg DAILY OWEN Administration Pantoprazole Sodium 100 mls @ 200 mls/hr 02/26/17 10:00 02/26/17 09:27 Protonix 40mg Ivpb (Pre-Docked) IVPB 200 mls/hr DAILY OWEN Administration Metoclopramide HCl 10 mg 02/25/17 02:00 02/26/17 17:19 Reglan Injection - IVPB 10 mg Q8H-IV OWEN Administration Potassium Phos/Sodium Phos 1 packet 02/24/17 10:00 02/26/17 09:27 Phos-Nak Packet - PO 1 packet BID OWEN Administration Thiamine HCl 100 mg 02/24/17 10:00 02/26/17 09:27 Vitamin B1 - PO 100 mg DAILY OWEN Administration Home Medications Medication Instructions Recorded Doxylamine Succinate [Unisom Sleep 25 mg PO ASDIR 02/23/17 Aid] EXTRemeties: positive for tremors ASSESSMENT AND PLAN: 36 y/o man with h/o alcoholism , withdrawal seizures who rpesented with coffee ground emesis and lower abd pain, was found to have lactic acidosis . # Alcohol withdrawal : no signs of Wernicke's . On thiamine ,folic acid continue , on Librium protocol # Acute Upper GI bleed resolved, no further bleeding likely due to alcohol dependency due PUD ; will continue with PPI orally for 1 month, follow up with [facility] # Lactic acidosis : no signs of infection . no need to monitor further # Urinary retention : s/p voiding around 700cc , was able to urinate when standing. No further Murray needed DVT Px: SCDs no AC for now since bleeding.
--- NOTE | 2017-02-26 20:21 | PN ---
GI Progress Note Subjective: Patient feeling much better Still somewhat tremulous No new bleeding - Objective Vital Signs: Vital Signs Temperature 97.9 F 02/26/17 20:05 Pulse Rate 79 02/26/17 20:05 Respiratory Rate 18 02/26/17 20:05 Blood Pressure 102/61 02/26/17 20:05 O2 Sat by Pulse Oximetry (%) 99 02/26/17 08:00 Constitutional: Thin HENT: Yes: Normocephalic Neck: Yes: Supple Cardiovascular: Yes: Regular Rate and Rhythm Respiratory: Yes: CTA Bilaterally Gastrointestinal Inspection: Yes: WNL ...Auscultate: Yes: Normoactive Bowel Sounds ...Palpate: Yes: Soft. No: Tenderness Labs: CBC, BMP 02/26/17 05:10 02/26/17 05:10 INR, PTT INR 1.20 (0.82-1.09) H 02/24/17 06:25 Assessment/Plan No new bleeding Hgb stable Still somewhat tremulous REC: Defer EGD Discharge post-detox To come to [facility] GI clinic if further assistance requred
[2017-02-26] MEDS ORDERED: chlordiazePOXIDE HCL 25 MG CAPSULE PO PRN (22:48)
[2017-02-27] MEDS ORDERED: METOCLOPRAMIDE HCL INJECTION 10 MG/2 ML VIAL IVPB SCH (02:00)
[2017-02-27] MEDS ORDERED: chlordiazePOXIDE 5 MG CAPSULE PO PRN ×2 (08:16→11:03)
[2017-02-27 08:18] LABS: MCH 29.4 pg (25.7-33.7); MCHC 33.9 g/dl (32.0-35.9); MEAN CELL VOLUME 86.8 fl (80-96); MEAN PLT VOLUME 7.8 fl (7.5-11.1); PLATELET COUNT 179 K/MM3 (134-434); RDW 14.7 % (11.9-15.9); WHITE BLOOD COUNT 5.2 K/mm3 (4.0-10.0)
[2017-02-27] MEDS ORDERED: PANTOPRAZOLE 40 MG TABLET (FP) PO SCH (10:00)
[2017-02-27] MEDS ORDERED: FOLIC ACID 1 MG TABLET (FP) PO SCH (10:00)
[2017-02-27] MEDS ORDERED: NAPH,MB-DB/K PH,MBDB POWDER PACKET PO SCH (10:00)
[2017-02-27] MEDS ORDERED: THIAMINE HCL 100 MG TABLET (FP) PO SCH (10:00)
[2017-02-27] MEDS ORDERED: chlordiazePOXIDE HCL 25 MG CAPSULE PO PRN (11:09)
[2017-02-27] MEDS ORDERED: chlordiazePOXIDE HCL 25 MG CAPSULE PO SCH ×2 (12:00)
[2017-02-27] MEDS: chlordiazePOXIDE HCL 25 MG CAPSULE PO SCH ×2 (13:17→17:37)
--- NOTE | 2017-02-27 13:50 | PN ---
Physical Exam: SUBJECTIVE: Patient seen and examined Patient resting in bed, NAD. afebrile and hemodynamically stable. Voiding freely. Tolerating regular diet. deneis f/c, n/v. No BM since admission. Still tremorous, anxious and sweaty. Denies visual or auditory hallucinations or sz activiry. 12/09 abd pain. Denies chest pain or sob. OBJECTIVE: Vital Signs Period Temp Pulse Resp BP Sys/Padilla Pulse Ox Last 24 Hr 97.8 F-98.8 F 70-80 18-20 101-135/55-71 99 GENERAL: The patient is awake, alert, and fully oriented HEAD: Normal with no signs of trauma. EYES: PERRL, extraocular movements intact, sclera anicteric, conjunctiva clear. No ptosis. no nystagmus ENT: moist mucous membranes. NECK: supple. LUNGS: Breath sounds equal, clear to auscultation bilaterally HEART: Regular rate and rhythm, S1, S2 grade 2 systolic ej murmur ABDOMEN: nondistended, mildly tender, no rebound no guarding, no organomegaly. no mass. No ascites or caput medusa EXTREMITIES: 2+ pulses, warm, well-perfused, no edema. NEUROLOGICAL: Cranial nerves II through XII grossly intact. Normal speech, gait not observed. fine tremors in hands PSYCH: Normal mood, normal affect. SKIN: Warm, dry Laboratory Results - last 24 hr 02/27/17 06:45 WBC 5.2 RBC 3.20 L Hgb 9.4 L Hct 27.8 L MCV 86.8 MCHC 33.9 RDW 14.7 Plt Count 179 MPV 7.8 Active Medications Generic Name Dose Route Start Last Admin Trade Name Freq PRN Reason Stop Dose Admin Chlordiazepoxide HCl 50 mg 02/27/17 12:00 02/27/17 13:17 Librium - PO 50 mg Q6HPO OWEN Administration Chlordiazepoxide HCl 50 mg 02/27/17 11:09 Librium - PO Q4HPO PRN ANXIETY Docusate Sodium 100 mg 02/27/17 14:00 02/27/17 13:17 Colace - PO 100 mg TID OWEN Administration Folic Acid 1 mg 02/27/17 10:00 02/27/17 09:17 Folic Acid - PO 1 mg DAILY OWEN Administration Pantoprazole Sodium 40 mg 02/27/17 10:00 02/27/17 09:16 Protonix - PO 40 mg BID OWEN Administration Thiamine HCl 100 mg 02/27/17 10:00 02/27/17 09:16 Vitamin B1 - PO 100 mg DAILY OWEN Administration ASSESSMENT/PLAN: 36 y/o M w/hx of alcohol abuse presents to ER after vomiting dark brown colored vomit 5-7x this AM. Last episode had some bright red blood. Never happened before. CXR - no active pulmonary disease Abd CT - There is no free air. There are no obvious gallstones. There is moderate bilateral hydronephrosis. The ureters are ectatic. No renal or ureteral calculi are seen. The urinary bladder is markedly distended. There are no bladder calculi. The large and small bowel is mildly distended with fluid and air. Findings likely indicative of diffuse ileus. The appendix is normal in size. There is no evidence of appendicitis. THIS DOCUMENT HAS BEEN ELECTRONICALLY SIGNED Geoffrey Carias MD Upper GI bleed, -Gastric ulcer vs esophageal variceal bleed -Hgb stable -stool guaiac negative -s/p 1 U pRBC this admission -currenlty stable, no more vomiting or bleeding -PO PPI 40 daily -tolerating regular diet -GI Consult no EGD Lactic acidosis -dilated rectum and bowel on CT -resolved Urinary retention -resolved Constipation -feed -PT -colace tid Alcohol Withdrawal -Hx withdrawal sz x 2 -alcohol level : 45.1 -Dr. Foster consult appreciated -Librium protocol day 4, increase libriun to 50 today, still symptomatic -Folic acid and thiamine -insurance doesnt cover [facility] ppx: SCDs, PPI FEN No IVF replete lytes regular diet Dispo: med kaykay Problem List - Problems (1) Alcohol dependence Code(s): F10.20 - ALCOHOL DEPENDENCE, UNCOMPLICATED (2) Alcohol withdrawal Code(s): F10.239 - ALCOHOL DEPENDENCE WITH WITHDRAWAL, UNSPECIFIED Qualifiers : Complication of substance-induced condition: uncomplicated Qualified Code(s): F10.230 - Alcohol dependence with withdrawal, uncomplicated (3) Ileus Code(s): K56.7 - ILEUS, UNSPECIFIED (4) Lactic acidosis Code(s): E87.2 - ACIDOSIS (5) Tachycardia Code(s): R00.0 - TACHYCARDIA, UNSPECIFIED (6) Tremulousness Code(s): R25.1 - TREMOR, UNSPECIFIED (7) Urinary retention Code(s): R33.9 - RETENTION OF URINE, UNSPECIFIED (8) Upper GI bleed Code(s): K92.2 - GASTROINTESTINAL HEMORRHAGE, UNSPECIFIED Visit type - Emergency Visit Emergency Visit: Yes ED Registration Date: 02/24/17 Care time: The patient presented to the Emergency Department on the above date and was hospitalized for further evaluation of their emergent condition. - New Patient This patient is new to me today: No - Critical Care Critical Care patient: No - Discharge Referral Referred to [facility] Med P.C.: No
[2017-02-27] MEDS ORDERED: DOCUSATE SODIUM 100 MG CAPSULE (FP) PO SCH (14:00)
[2017-02-27] MEDS ORDERED: ACETAMINOPHEN 325 MG TABLET (FP) PO PRN (14:39)
[2017-02-27 14:46] VITALS: BP 112/65; PULSE 86; TEMP 98.1
--- NOTE | 2017-02-27 15:56 | PN ---
Teaching Attending Note Name of Resident: Hayley Livingston ATTENDING PHYSICIAN STATEMENT I saw and evaluated the patient. I reviewed the resident's note and discussed the case with the resident. I agree with the resident's findings and plan as documented. Patient is still having tremors, still unsteady on his feet. Vital Signs Temperature 98.1 F 02/27/17 14:00 Pulse Rate 86 02/27/17 14:00 Respiratory Rate 20 02/27/17 09:06 Blood Pressure 112/65 02/27/17 14:00 O2 Sat by Pulse Oximetry (%) 99 02/27/17 09:06 CBCD WBC 5.2 K/mm3 (4.0-10.0) 02/27/17 06:45 RBC 3.20 M/mm3 (4.00-5.60) L 02/27/17 06:45 Hgb 9.4 GM/dL (11.7-16.9) L 02/27/17 06:45 Hct 27.8 % (35.4-49) L 02/27/17 06:45 MCV 86.8 fl (80-96) 02/27/17 06:45 MCHC 33.9 g/dl (32.0-35.9) 02/27/17 06:45 RDW 14.7 % (11.9-15.9) 02/27/17 06:45 Plt Count 179 K/MM3 (134-434) 02/27/17 06:45 MPV 7.8 fl (7.5-11.1) 02/27/17 06:45 CMP Sodium 143 mmol/L (136-145) 02/26/17 05:10 Potassium 3.6 mmol/L (3.5-5.1) 02/26/17 05:10 Chloride 107 mmol/L (98-107) 02/26/17 05:10 Carbon Dioxide 27 mmol/L (21-32) 02/26/17 05:10 Anion Gap 9 (8-16) 02/26/17 05:10 BUN 10 mg/dL (7-18) D 02/26/17 05:10 Creatinine 0.6 mg/dL (0.7-1.3) L 02/26/17 05:10 Creat Clearance w eGFR > 60 (>60) 02/26/17 05:10 Random Glucose 76 mg/dL (74-106) D 02/26/17 05:10 Calcium 8.0 mg/dL (8.5-10.1) L 02/26/17 05:10 Total Bilirubin 0.5 mg/dL (0.2-1.0) D 02/26/17 05:10 AST 42 U/L (15-37) H D 02/26/17 05:10 ALT 41 U/L (12-78) 02/26/17 05:10 Alkaline Phosphatase 72 U/L (45-117) 02/26/17 05:10 Total Protein 6.2 g/dl (6.4-8.2) L 02/26/17 05:10 Albumin 3.2 g/dl (3.4-5.0) L 02/26/17 05:10 CARDIAC ENZYMES Creatine Kinase 151 IU/L (39-308) 02/23/17 21:00 Troponin I < 0.02 ng/ml (0.00-0.05) 02/23/17 21:00 Current Medications Generic Name Dose Route Start Last Admin Trade Name Freq PRN Reason Stop Dose Admin Acetaminophen 650 mg 02/27/17 14:39 02/27/17 14:51 Tylenol - PO 650 mg Q6H PRN Administration FEVER OR PAIN Chlordiazepoxide HCl 50 mg 02/27/17 12:00 02/27/17 13:17 Librium - PO 50 mg Q6HPO OWEN Administration Chlordiazepoxide HCl 50 mg 02/27/17 11:09 Librium - PO Q4HPO PRN ANXIETY Docusate Sodium 100 mg 02/27/17 14:00 02/27/17 13:17 Colace - PO 100 mg TID OWEN Administration Folic Acid 1 mg 02/27/17 10:00 02/27/17 09:17 Folic Acid - PO 1 mg DAILY OWEN Administration Pantoprazole Sodium 40 mg 02/27/17 10:00 02/27/17 09:16 Protonix - PO 40 mg BID OWEN Administration Thiamine HCl 100 mg 02/27/17 10:00 02/27/17 09:16 Vitamin B1 - PO 100 mg DAILY OWEN Administration Home Medications Medication Instructions Recorded Doxylamine Succinate [Unisom Sleep 25 mg PO ASDIR 02/23/17 Aid] Chlordiazepoxide [Librium -] 50 mg PO Q4HPO PRN #15 tab MDD 6 02/27/17 Chlordiazepoxide [Librium -] 50 mg PO Q6HPO #10 tab MDD 4 02/27/17 Docusate Sodium [Colace -] 100 mg PO TID #90 cap 02/27/17 Folic Acid - 1 mg PO DAILY #30 tablet 02/27/17 Pantoprazole Sodium [Protonix -] 40 mg PO BID #60 tab 02/27/17 Thiamine HCl [Vitamin B1 -] 100 mg PO DAILY #30 tablet 02/27/17 Extremeties: positive for tremors ASSESSMENT AND PLAN: 36 y/o man with h/o alcoholism , withdrawal seizures who presented with coffee ground emesis and lower abd pain, was found to have lactic acidosis . # Alcohol withdrawal continues to have tremors, unsteady on his feet. no signs of Wernicke's, On thiamine ,folic acid continue , on Librium protocol # Acute Upper GI bleed resolved, no further bleeding likely due to alcohol dependency due PUD ; will continue with PPI orally for 1 month, follow up with [facility]. # Urinary retention resolved DVT Px: SCDs no AC for now since bleeding. patient was going to be discharged back to detox to continue, no beds are available.
--- NOTE | 2017-02-27 18:43 | CONSULT ---
Consultation: REQUESTING PROVIDER: CONSULT REQUEST: We have been asked to medically evaluate this patient for ( specify). HISTORY OF PRESENT ILLNESS: REVIEW OF SYSTEMS: CONSTITUTIONAL: Absent: fever, chills, diaphoresis, generalized weakness, malaise, loss of appetite, weight change HEENT: Absent: rhinorrhea, nasal congestion, throat pain, throat swelling, difficulty swallowing, mouth swelling, ear pain, eye pain, visual changes CARDIOVASCULAR: Absent: chest pain, syncope, palpitations, irregular heart rate, lightheadedness , peripheral edema RESPIRATORY: Absent: cough, shortness of breath, dyspnea with exertion, orthopnea, wheezing, stridor, hemoptysis GASTROINTESTINAL: Absent: abdominal pain, abdominal distension, nausea, vomiting, diarrhea, constipation, melena, hematochezia GENITOURINARY: Absent: dysuria, frequency, urgency, hesitancy, hematuria, flank pain, genital pain MUSCULOSKELETAL: Absent: myalgia, arthralgia, joint swelling, back pain, neck pain SKIN: Absent: rash, itching, pallor HEMATOLOGIC/IMMUNOLOGIC: Absent: easy bleeding, easy bruising, lymphadenopathy, frequent infections ENDOCRINE: Absent: unexplained weight gain, unexplained weight loss, heat intolerance, cold intolerance NEUROLOGIC: Absent: headache, focal weakness or paresthesias, dizziness, unsteady gait, seizure, mental status changes, bladder or bowel incontinence PSYCHIATRIC: Absent: anxiety, depression, suicidal or homicidal ideation, hallucinations. PHYSICAL EXAMINATION Vital Signs - 24 hr 02/26/17 02/27/17 02/27/17 20:05 06:00 09:03 Temperature 97.9 F 97.8 F 98 F Pulse Rate 79 74 80 Respiratory 18 20 20 Rate Blood Pressure 102/61 116/71 135/64 O2 Sat by Pulse Oximetry (%) 02/27/17 02/27/17 02/27/17 09:06 14:00 18:00 Temperature 98.1 F 98.1 F Pulse Rate 86 86 Respiratory 20 Rate Blood Pressure 112/65 112/65 O2 Sat by Pulse 99 Oximetry (%) GENERAL: Awake, alert, and fully oriented, in no acute distress. HEAD: Normal with no signs of trauma. EYES: Pupils equal, round and reactive to light, extraocular movements intact, sclera anicteric, conjunctiva clear. No lid lag. EARS, NOSE, THROAT: Ears normal, nares patent, oropharynx clear without exudates. Moist mucous membranes. NECK: Normal range of motion, supple without lymphadenopathy, JVD, or masses. LUNGS: Breath sounds equal, clear to auscultation bilaterally. No wheezes, and no crackles. No accessory muscle use. HEART: Regular rate and rhythm, normal S1 and S2 without murmur, rub or gallop. ABDOMEN: Soft, nontender, not distended, normoactive bowel sounds, no guarding, no rebound, no masses. No hepatomegaly or splenomegaly. MUSCULOSKELETAL: Normal range of motion at all joints. No bony deformities or tenderness. No CVA tenderness. UPPER EXTREMITIES: 2+ pulses, warm, well-perfused. No cyanosis. No clubbing. Cap refill <2 seconds. No peripheral edema. LOWER EXTREMITIES: 2+ pulses, warm, well-perfused. No calf tenderness. No peripheral edema. NEUROLOGICAL: Cranial nerves II-XII intact. Normal speech. Normal gait. PSYCHIATRIC: Cooperative. Good eye contact. Appropriate mood and affect. SKIN: Warm, dry, normal turgor, no rashes or lesions noted. Laboratory Results - last 24 hr 02/27/17 06:45 WBC 5.2 RBC 3.20 L Hgb 9.4 L Hct 27.8 L MCV 86.8 MCHC 33.9 RDW 14.7 Plt Count 179 MPV 7.8 ASSESSMENT/PLAN: Dispo: We will continue to follow the patient. Thank you for this consultative opportunity. Problem List - Problems (1) Alcohol dependence Code(s): F10.20 - ALCOHOL DEPENDENCE, UNCOMPLICATED (2) Alcohol withdrawal Code(s): F10.239 - ALCOHOL DEPENDENCE WITH WITHDRAWAL, UNSPECIFIED Qualifiers : Complication of substance-induced condition: uncomplicated Qualified Code(s): F10.230 - Alcohol dependence with withdrawal, uncomplicated (3) Ileus Code(s): K56.7 - ILEUS, UNSPECIFIED (4) Lactic acidosis Code(s): E87.2 - ACIDOSIS (5) Tachycardia Code(s): R00.0 - TACHYCARDIA, UNSPECIFIED (6) Tremulousness Code(s): R25.1 - TREMOR, UNSPECIFIED (7) Urinary retention Code(s): R33.9 - RETENTION OF URINE, UNSPECIFIED (8) Upper GI bleed Code(s): K92.2 - GASTROINTESTINAL HEMORRHAGE, UNSPECIFIED
--- NOTE | 2017-02-27 18:44 | DS ---
Physical Exam: SUBJECTIVE: Patient seen and examined Patient resting in bed, NAD. afebrile and hemodynamically stable. Voiding freely. Tolerating regular diet. deneis f/c, n/v. No BM since admission. Still tremorous, anxious and sweaty. Denies visual or auditory hallucinations or sz activiry. 12/09 abd pain. Denies chest pain or sob. OBJECTIVE: Vital Signs Period Temp Pulse Resp BP Sys/Padilla Pulse Ox Last 24 Hr 97.8 F-98.1 F 74-86 18-20 102-135/61-71 99 PHYSICAL EXAM GENERAL: The patient is awake, alert, and fully oriented HEAD: Normal with no signs of trauma. EYES: PERRL, extraocular movements intact, sclera anicteric, conjunctiva clear. No ptosis. no nystagmus ENT: moist mucous membranes. NECK: supple. LUNGS: Breath sounds equal, clear to auscultation bilaterally HEART: Regular rate and rhythm, S1, S2 grade 2 systolic ej murmur ABDOMEN: nondistended, mildly tender, no rebound no guarding, no organomegaly. no mass. No ascites or caput medusa EXTREMITIES: 2+ pulses, warm, well-perfused, no edema. NEUROLOGICAL: Cranial nerves II through XII grossly intact. Normal speech, gait not observed. fine tremors in hands PSYCH: Normal mood, normal affect. SKIN: Warm, dry LABS Laboratory Results - last 24 hr 02/27/17 06:45 WBC 5.2 RBC 3.20 L Hgb 9.4 L Hct 27.8 L MCV 86.8 MCHC 33.9 RDW 14.7 Plt Count 179 MPV 7.8 HOSPITAL COURSE: Date of Admission:02/24/17 36 y/o M w/hx of alcohol abuse presents to ER after vomiting coffe ground emesis 5-7x this AM. He has watery nonbloody nonmelenous diarrhea, abdominal pain/distention, urinary retention, diaphoresis and tremors. He drank 3 - 24ounce beers this AM and drinks 10-12 - 12 ounce beers per day and he has been drinking a large amount of alcohol since he was 23. He has been hospitalized twice in the past for seizures from withdrawals at [facility]. Admission Imaing: CXR - no active pulmonary disease Abd CT - There is no free air. There are no obvious gallstones. There is moderate bilateral hydronephrosis. The ureters are ectatic. No renal or ureteral calculi are seen. The urinary bladder is markedly distended. There are no bladder calculi. The large and small bowel is mildly distended with fluid and air. Findings likely indicative of diffuse ileus. The appendix is normal in size. There is no evidence of appendicitis. THIS DOCUMENT HAS BEEN ELECTRONICALLY SIGNED Geoffrey Carias MD Patient was admitted for Upper GI bleed and EtOH withdrawal. He was treated with PPI Drip and octreotide and was evaluated by GI. He was also given 1 u PRBC in ED although his H/H remained stable besides dilutional effect. He has not had any more vomiting or bleeding.Urinary retention was treated with liu, after which he voided on his own w/o issue. Dehydration was treated with IVF. He was on librium protocol as well as vitamins. He also developed constipation. His abd pain resolved and GI assessed that he does not need EGD inhospital. He was transferred to [facility] to continue detox. Date of Discharge: 02/27/17 Minutes to complete discharge: 46 (na) Discharge Summary Reason For Visit: ALCOHOL WITHDRAWAL TACHYCARDIA TREMULOUS Condition: Stable - Instructions Diet, Activity, Other Instructions: You were here due to a bleed from your stomach and due to alcohol withdrawal. we treated your stomach bleed and it stopped, however, we strongly advise you to come to [facility] GI clinic for a check up after you are done with detox/ rehab. You will continue your detox/rehab in [facility]. We encourage you to quit drinking and to seek every means of support to achieve that goal, including therapy, AA meetings and rehab. Take daily vitamins that we prescribe you (folate and thiamine). Take laxative colace 3 times a day when constipated, Take protonix daily for 30 days to prevent stomach ulcer. Return to hospital if symptoms worsen Continue Detox protocol as per Everette.Miguel Angel started him on 50mg today Referrals: Aram Fung MD [Staff Physician] - Gavin Michelle MD [Staff Physician] - Disposition: TRANSFER ACUTE CARE/OTHER HOSP - Home Medications Comprehensive Discharge Medication List: Ambulatory Orders Doxylamine Succinate [Unisom Sleep Aid] 25 mg PO ASDIR 02/23/17 Docusate Sodium [Colace -] 100 mg PO TID #90 cap 02/27/17 Folic Acid - 1 mg PO DAILY #30 tablet 02/27/17 Pantoprazole Sodium [Protonix -] 40 mg PO BID #60 tab 02/27/17 Thiamine HCl [Vitamin B1 -] 100 mg PO DAILY #30 tablet 02/27/17 Problem List - Problems (1) Alcohol dependence Code(s): F10.20 - ALCOHOL DEPENDENCE, UNCOMPLICATED (2) Alcohol withdrawal Code(s): F10.239 - ALCOHOL DEPENDENCE WITH WITHDRAWAL, UNSPECIFIED Qualifiers : Complication of substance-induced condition: uncomplicated Qualified Code(s): F10.230 - Alcohol dependence with withdrawal, uncomplicated (3) Ileus Code(s): K56.7 - ILEUS, UNSPECIFIED (4) Lactic acidosis Code(s): E87.2 - ACIDOSIS (5) Tachycardia Code(s): R00.0 - TACHYCARDIA, UNSPECIFIED (6) Tremulousness Code(s): R25.1 - TREMOR, UNSPECIFIED (7) Urinary retention Code(s): R33.9 - RETENTION OF URINE, UNSPECIFIED (8) Upper GI bleed Code(s): K92.2 - GASTROINTESTINAL HEMORRHAGE, UNSPECIFIED This patient is new to me today: No Emergency Visit: Yes ED Registration Date: 02/24/17 Care time: The patient presented to the Emergency Department on the above date and was hospitalized for further evaluation of their emergent condition. Critical Care patient: No - Discharge Referral Referred to [facility] Med P.C.: No
== END 2017-02-27 18:29 | disposition other institution (70) | DRG 253 ==
LOC: JER 20:12 → JERBED 02-24 01:22 → J4W 02-24 14:52 → J6S 02-26 22:32
PROVIDERS: ADMIT Internal Medicine; ATTEND Internal Medicine
PROC: HZ2ZZZZ Detoxification Services for Substance Abuse Treatment (ICD-10-PCS; principal; 2017-02-24)
DX: K92.2 Gastrointestinal hemorrhage, unspecified (principal); F10.239 Alcohol dependence with withdrawal, unspecified; E87.2 Acidosis; R33.9 Retention of urine, unspecified; K59.00 Constipation, unspecified; K56.7 Ileus, unspecified; R00.0 Tachycardia, unspecified; F17.210 Nicotine dependence, cigarettes, uncomplicated
CPT/HCPCS: 36415; 36430; 71010-TC; 74000-TC; 74020-TC; 74176-TC; 76775-TC; 76856-TC; 80053; 80307; 81003; 82550; 82553; 83605; 83690; 83735; 83880; 84100; 84439; 84443; 84481; 84484; 85025; 85027; 85610; 85730; 86850; 86900; 86901; 86922; 87040; 87086; 93005; 93010; 97116-GP; 97161-GP; 99285-25; P9038; P9058

== ENCOUNTER 2017-03-12 13:21 | Inpatient (IN) | payer OTHER ==
[2017-03-12] MEDS ORDERED: SODIUM CHLORIDE 1,000 ML IV STA (14:05)
[2017-03-12] MEDS ORDERED: diazePAM CARPU-JECT 10 MG/2 ML DISP.SYRIN IVPUSH ONE ×2 (14:06→17:24)
[2017-03-12] MEDS ORDERED: FOLIC ACID INJECTION - 1 MG, THIAMINE HCL 100 MG, MULTIVIT INJECTION ADULT 10 ML in SOD... IVPB ONE (14:09)
[2017-03-12] MEDS ORDERED: diazePAM CARPU-JECT 10 MG/2 ML DISP.SYRIN ONE ×2 (14:13→17:25)
--- NOTE | 2017-03-12 14:20 | PDOC ---
History of Present Illness - General Chief Complaint: Alcohol intoxication Stated Complaint: TREMORS History Source: Patient - History of Present Illness Timing/Duration: other (today) Associated Symptoms: reports: malaise, nausea/vomiting, weakness. denies: chest pain, fever/chills, seizure, shortness of breath Past History - Past Medical History Allergies/Adverse Reactions: Allergies Allergy/AdvReac Type Severity Reaction Status Date / Time egg Allergy Intermediate Vomiting Verified 03/12/17 16:22 Home Medications: Ambulatory Orders Doxylamine Succinate [Unisom Sleep Aid] 25 mg PO ASDIR 02/23/17 Docusate Sodium [Colace -] 100 mg PO TID #90 cap 02/27/17 Folic Acid - 1 mg PO DAILY #30 tablet 02/27/17 Pantoprazole Sodium [Protonix -] 40 mg PO BID #60 tab 02/27/17 Thiamine HCl [Vitamin B1 -] 100 mg PO DAILY #30 tablet 02/27/17 Anemia: No Asthma: No Cancer: No Cardiac Disorders: No CVA: No COPD: No CHF: No Dementia: No Diabetes: No GI Disorders: Yes Disorders: No HTN: No Hypercholesterolemia: No Kidney Stones: No Liver Disease: No Suicide Attempt (Hx): No Seizures: Yes (LAS SEIZURE 6 MONTHS AGO) Thyroid Disease: No - Surgical History Abdominal Surgery: No Appendectomy: No Cardiac Surgery: No Cholecystectomy: No Lung Surgery: No Neurologic Surgery: No Orthopedic Surgery: No - Reproductive History Testicular Surgery: No - Psycho/Social/Smoking Cessation Hx Anxiety: Yes Suicidal Ideation: No Smoking History: Current every day smoker Have you smoked in the past 12 months: Yes Number of Cigarettes Smoked Daily: 8 Cigars Per Day: 0 Information on smoking cessation initiated: No 'Breaking Loose' booklet given: 02/27/17 Hx Alcohol Use: Yes (DAILY) Drug/Substance Use Hx: No Substance Use Type: Alcohol Hx Substance Use Treatment: Yes Review of Systems - Review of Systems Constitutional: Yes: Malaise. No: Chills, Fever Respiratory: No: Shortness of Breath Cardiac (ROS): No: Chest Pain ABD/GI: Yes: Nausea, Vomiting. No: Blood Streaked Bowels, Rectal Bleeding : No: Dysuria *Physical Exam - Vital Signs Last Vital Signs Temp Pulse Resp BP Pulse Ox 98.3 F 107 H 18 00/ 97 03/12/17 13:23 04/13/17 13:23 03/12/17 13:23 03/12/17 13:23 03/12/17 13:23 - Physical Exam General Appearance: Yes: Appropriately Dressed, Moderate Distress, Other (pt tremulous on stretcher) HEENT: positive: Normal Voice Neck: positive: Supple Respiratory/Chest: negative: Respiratory Distress Gastrointestinal/Abdominal: positive: Soft Integumentary: positive: Dry, Warm Neurologic: positive: Alert ED Treatment Course - LABORATORY CBC & Chemistry Diagram: 03/12/17 13:55 03/12/17 13:55 Medical Decision Making - Medical Decision Making 03/12/17 14:10 36 yo male, chronic alcohol abuse, complicated by withdrawal seizures, status post admission a month ago for alcohol withdrawal and GI bleed and treated with PPI drip, octreotide and transfused 1 unit of packed red blood cells, was discharged approximately 2 weeks ago to detox facility at [facility] and discharged last week, and now returns to ED w/ malaise w/ n/v, bodyaches and tremors that started several hrs ago. Admits that he resumed drinking after discharge from detox and that last ETOH use was 3am today. Also c/o lower abd pain, denies any hematemesis, BRBPR, melena, abd pain, f/c. See exam ETOH withdrawal Tachy to 107 w/ tremors -valium -banana bag -labs -anticipate admission Abd pain exam -labs 03/12/17 14:21 03/12/17 15:14 HR improved to 81 s/p 1 dose of valium. Pt still mildly tremulous on reasessment , will give po librium at this time and admit to Dr Vidales who's covering service pts *DC/Admit/Observation/Transfer Diagnosis at time of Disposition: Alcohol dependence with uncomplicated withdrawal - Discharge Dispostion Condition at time of disposition: Fair Admit: Yes
[2017-03-12 14:49] LABS: BASOPHIL 2.9 % (0-2.0); EOSINOPHIL 5.4 % (0-4.5); MCHC 33.6 g/dl (32.0-35.9); MEAN CELL VOLUME 86.1 fl (80-96); MEAN PLT VOLUME 6.6 fl (7.5-11.1); NEUTROPHILS 60.8 % (42.8-82.8); PLATELET COUNT 346 K/MM3 (134-434); RDW 14.8 % (11.9-15.9); WHITE BLOOD COUNT 5.9 K/mm3 (4.0-10.0)
[2017-03-12] MEDS ORDERED: chlordiazePOXIDE HCL 25 MG CAPSULE PO ONE (15:05)
[2017-03-12 15:15] LABS: ALBUMIN 4.2 g/dl (3.4-5.0); ANION GAP 8 (8-16); BILIRUBIN,TOTAL 0.5 mg/dL (0.2-1.0); CALCIUM 8.5 mg/dL (8.5-10.1); CO2 30 mmol/L (21-32); COCKROFT - GAULT 116.99; CREATININE 0.7 mg/dL (0.7-1.3); GLUCOSE,RANDOM 104 mg/dL (74-106); SGOT/AST 98 U/L (15-37)
[2017-03-12 15:17] LABS: ALK PHOS 95 U/L (45-117); SGPT/ALT 76 U/L (12-78); TOT PROT 7.8 g/dl (6.4-8.2)
[2017-03-12] MEDS ORDERED: chlordiazePOXIDE HCL 25 MG CAPSULE ONE (16:04)
[2017-03-12 17:49] VITALS: BMI 25.6
[2017-03-12] MEDS ORDERED: LORazepam 1 MG TABLET PO ONE (18:15)
[2017-03-12] MEDS ORDERED: THIAMINE HCL 200 MG/2 ML VIAL IVPB ONE (20:51)
--- NOTE | 2017-03-12 20:56 | HP ---
Admitting History and Physical - Admission History of Present Illness: Pt is a 36 y/o male with a PMH significant for alcoholism. Pt presented to the ER in withdrawal w/tremors,sweating,and tachycardia to 107/min. History Source: Patient, Medical Record - Past Medical History [employer]: Yes: Seizure (Alcohol withdrawal seizures x2) Pulmonary: No: Asthma, COPD, Sleep Apnea Psych: Yes: Addictions (Alcohol) - Past Surgical History Past Surgical History: Yes: None - Smoking History Smoking history: Current every day smoker Have you smoked in the past 12 months: Yes Aproximately how many cigarettes per day: 8 - Alcohol/Substance Use Hx Alcohol Use: Yes (DAILY) Number of Drinks Daily: 10 (10-12 12oz beers daily) History of Substance Use: reports: None - Social History ADL: Independent History of Recent Travel: No Home Medications - Allergies Allergies/Adverse Reactions: Allergies Allergy/AdvReac Type Severity Reaction Status Date / Time egg Allergy Intermediate Vomiting Verified 03/12/17 16:22 - Home Medications Home Medications: Ambulatory Orders Pantoprazole Sodium [Protonix -] 40 mg PO BID #60 tab 02/27/17 Thiamine HCl [Vitamin B1 -] 100 mg PO DAILY #30 tablet 02/27/17 Folic Acid - 1 mg PO DAILY #30 tablet 03/16/17 Family Disease History - Family Disease History Family History: Unremarkable Family Disease History: Other: Father () Review of Systems Unable to obtain ROS, reason: Alcoholism Physical Examination Vital Signs: Vital Signs Temperature 98 F 03/12/17 17:30 Pulse Rate 70 03/12/17 17:30 Respiratory Rate 18 03/12/17 17:30 Blood Pressure 109/60 03/12/17 17:30 O2 Sat by Pulse Oximetry (%) 100 03/12/17 17:30 Constitutional: Yes: No Distress Eyes: Yes: WNL HENT: Yes: WNL Neck: Yes: WNL Cardiovascular: Yes: Tachycardia Respiratory: Yes: WNL, Regular, CTA Bilaterally Gastrointestinal: Yes: WNL, Normal Bowel Sounds Musculoskeletal: Yes: WNL Extremities: Yes: WNL Edema: No Neurological: Yes: WNL, Alert, Oriented ...Motor Strength: WNL Problem List - Problems (1) Alcohol withdrawal Assessment/Plan: Cont taper Supportive care Cont IVF Code(s): F10.239 - ALCOHOL DEPENDENCE WITH WITHDRAWAL, UNSPECIFIED Qualifiers : Complication of substance-induced condition: uncomplicated Qualified Code(s): F10.230 - Alcohol dependence with withdrawal, uncomplicated
[2017-03-12] MEDS: DEXTROSE 5%-0.45% SALINE 1,000 ML IV SCH (21:34)
--- NOTE | 2017-03-12 22:41 | PN ---
Progress Note, Physician History of Present Illness: No new complaints - Current Medication List Current Medications: Active Medications Folic Acid (Folic Acid -) 1 mg PO DAILY [facility] Dextrose/Sodium Chloride (D5-1/2ns -) 1,000 mls @ 75 mls/hr IV ASDIR OWEN Last Admin: 03/12/17 21:34 Dose: 75 mls/hr Lorazepam (Ativan -) 2 mg PO Q6HPO [facility] - Objective Vital Signs: Vital Signs Temperature 98 F 03/12/17 17:30 Pulse Rate 70 03/12/17 17:30 Respiratory Rate 18 03/12/17 17:30 Blood Pressure 109/60 03/12/17 17:30 O2 Sat by Pulse Oximetry (%) 100 03/12/17 17:30 Cardiovascular: Yes: WNL, Regular Rate and Rhythm Respiratory: Yes: WNL, Regular, CTA Bilaterally Gastrointestinal: Yes: WNL, Normal Bowel Sounds, Soft Problem List - Problems (1) Alcohol withdrawal Code(s): F10.239 - ALCOHOL DEPENDENCE WITH WITHDRAWAL, UNSPECIFIED Qualifiers : Complication of substance-induced condition: uncomplicated Qualified Code(s): F10.230 - Alcohol dependence with withdrawal, uncomplicated
[2017-03-13] MEDS: LORazepam 1 MG TABLET PO SCH ×4 (00:06→18:57)
[2017-03-13 08:13] LABS: MCH 29.3 pg (25.7-33.7); MCHC 34.2 g/dl (32.0-35.9); MEAN CELL VOLUME 85.8 fl (80-96); MEAN PLT VOLUME 6.6 fl (7.5-11.1); NEUTROPHILS 54.8 % (42.8-82.8); PLATELET COUNT 258 K/MM3 (134-434); RDW 14.7 % (11.9-15.9); WHITE BLOOD COUNT 5.9 K/mm3 (4.0-10.0)
--- NOTE | 2017-03-13 08:41 | CONSULT ---
Consult Detox [facility] Reason for Current Admission/Consult: Alcohol withdrawal sx. Referred by:: Kiara Vidales MD - History History of Present Illness: 36 y/o man with a long hx of alcoholism is admitted because of withdrawal sx. He had withdrawal seizures,tremors,sweating,tachycardia of 107/min. - History Source History Provided By: Patient, Medical Record - Alcohol/Substance Use Hx Alcohol Use: Yes (DAILY) - Current Drug/Alcohol Use Alcohol Route: Oral Frequency: Daily Amount used: Beer 4(6packs) Age of first use: 23 Date of Last Use: 03/11/17 - Past Medical History FLAGGER: Yes: Seizure (Alcohol withdrawal seizures x2) Pulmonary: No: Asthma, COPD, Sleep Apnea Psych: Yes: Addictions (Alcohol) - Past Surgical History Past Surgical History: Yes: None - Significant Medical Findings: Laboratory Last Values WBC 5.9 K/mm3 (4.0-10.0) 03/13/17 06:30 RBC 3.72 M/mm3 (4.00-5.60) L 03/13/17 06:30 Hgb 10.9 GM/dL (11.7-16.9) L 03/13/17 06:30 Hct 32.0 % (35.4-49) L 03/13/17 06:30 MCV 85.8 fl (80-96) 03/13/17 06:30 MCHC 34.2 g/dl (32.0-35.9) 03/13/17 06:30 RDW 14.7 % (11.9-15.9) 03/13/17 06:30 Plt Count 258 K/MM3 (134-434) D 03/13/17 06:30 MPV 6.6 fl (7.5-11.1) L 03/13/17 06:30 Neutrophils % 54.8 % (42.8-82.8) 03/13/17 06:30 Lymphocytes % 24.3 % (8-40) 03/13/17 06:30 Monocytes % 6.9 % (3.8-10.2) 03/13/17 06:30 Eosinophils % 11.0 % (0-4.5) H D 03/13/17 06:30 Basophils % 3.0 % (0-2.0) H 03/13/17 06:30 Sodium 139 mmol/L (136-145) 03/13/17 06:30 Potassium 3.5 mmol/L (3.5-5.1) 03/13/17 06:30 Chloride 103 mmol/L (98-107) 03/13/17 06:30 Carbon Dioxide 28 mmol/L (21-32) 03/13/17 06:30 Anion Gap 8 (8-16) 03/13/17 06:30 BUN 5 mg/dL (7-18) L 03/13/17 06:30 Creatinine 0.6 mg/dL (0.7-1.3) L 03/13/17 06:30 Creat Clearance w eGFR > 60 (>60) 03/13/17 06:30 Random Glucose 86 mg/dL (74-106) 03/13/17 06:30 Calcium 8.3 mg/dL (8.5-10.1) L 03/13/17 06:30 Total Bilirubin 1.0 mg/dL (0.2-1.0) D 03/13/17 06:30 AST 75 U/L (15-37) H D 03/13/17 06:30 ALT 62 U/L (12-78) 03/13/17 06:30 Alkaline Phosphatase 85 U/L (45-117) 03/13/17 06:30 Total Protein 6.8 g/dl (6.4-8.2) 03/13/17 06:30 Albumin 3.7 g/dl (3.4-5.0) 03/13/17 06:30 Lipase 91 U/L (73-393) 03/12/17 13:55 labs noted CIWA Score - CIWA Score Nausea/Vomitin Muscle Tremors: 5 Anxiety: 4-Mod. Anxious/Guarded Agitation: 4-Moderately Restless Paroxysmal Sweats: 3 Orientation: 0-Oriented Tacttile Disturbances: 0-None Auditory Disturbances: 0-None Visual Disturbances: 0-None Headache: 0-None Present CIWA-Ar Total Score: 19 Assessment Plan - Diagnosis (1) Alcohol dependence with uncomplicated withdrawal Status: Acute - Plan Plan: I advise pt. to go to rehab after detox - Medication Detox Regimen/Protocol: Librium
[2017-03-13 08:48] LABS: ALBUMIN 3.7 g/dl (3.4-5.0); ALK PHOS 85 U/L (45-117); ANION GAP 8 (8-16); CALCIUM 8.3 mg/dL (8.5-10.1); CO2 28 mmol/L (21-32); COCKROFT - GAULT 152.87; CREATININE 0.6 mg/dL (0.7-1.3); GLUCOSE,RANDOM 86 mg/dL (74-106); SGOT/AST 75 U/L (15-37); SGPT/ALT 62 U/L (12-78); TOT PROT 6.8 g/dl (6.4-8.2)
[2017-03-13] MEDS: FOLIC ACID 1 MG TABLET (FP) PO SCH (09:12)
[2017-03-13] MEDS: chlordiazePOXIDE HCL 25 MG CAPSULE PO SCH ×3 (10:56→23:29)
[2017-03-13] MEDS: DEXTROSE 5%-0.45% SALINE 1,000 ML IV SCH ×2 (14:40→23:29)
[2017-03-13] MEDS: chlordiazePOXIDE HCL 25 MG CAPSULE PO PRN (16:51)
--- NOTE | 2017-03-13 18:16 | PN ---
Progress Note, Physician History of Present Illness: No new complaints - Current Medication List Current Medications: Active Medications Chlordiazepoxide HCl (Librium -) 25 mg PO Q4H PRN PRN Reason: WITHDRAWAL(CONT SUBST) Stop: 03/16/17 08:40 Last Admin: 03/13/17 16:51 Dose: 25 mg Chlordiazepoxide HCl (Librium -) 50 mg PO [id number] [facility] Stop: 03/14/17 05:01 Last Admin: 03/13/17 18:00 Dose: 50 mg Chlordiazepoxide HCl (Librium -) 25 mg PO [id number] [facility] Stop: 03/15/17 05:01 Chlordiazepoxide HCl (Librium -) 15 mg PO [id number] OWEN Stop: 03/16/17 05:01 Chlordiazepoxide HCl (Librium -) 10 mg PO [id number] [facility] Stop: 03/17/17 05:01 Folic Acid (Folic Acid -) 1 mg PO DAILY [facility] Last Admin: 03/13/17 09:12 Dose: 1 mg Dextrose/Sodium Chloride (D5-1/2ns -) 1,000 mls @ 75 mls/hr IV ASDIR [facility] Last Admin: 03/13/17 14:40 Dose: 75 mls/hr Lorazepam (Ativan -) 2 mg PO Q6HPO [facility] Last Admin: 03/13/17 12:10 Dose: 2 mg - Objective Vital Signs: Vital Signs Temperature 97.7 F 03/13/17 18:00 Pulse Rate 95 H 03/13/17 18:00 Respiratory Rate 18 03/13/17 18:00 Blood Pressure 125/77 03/13/17 18:00 O2 Sat by Pulse Oximetry (%) 95 03/13/17 09:00 Cardiovascular: Yes: WNL, Regular Rate and Rhythm Respiratory: Yes: WNL, Regular, CTA Bilaterally Gastrointestinal: Yes: WNL, Normal Bowel Sounds, Soft Labs: CBC, BMP 03/13/17 06:30 03/13/17 06:30 Problem List - Problems (1) Alcohol withdrawal Code(s): F10.239 - ALCOHOL DEPENDENCE WITH WITHDRAWAL, UNSPECIFIED Qualifiers : Complication of substance-induced condition: uncomplicated Qualified Code(s): F10.230 - Alcohol dependence with withdrawal, uncomplicated
[2017-03-14] MEDS: LORazepam 1 MG TABLET PO SCH ×4 (01:31→19:04)
[2017-03-14] MEDS: chlordiazePOXIDE HCL 25 MG CAPSULE PO SCH ×4 (06:13→23:00)
[2017-03-14] MEDS: FOLIC ACID 1 MG TABLET (FP) PO SCH (09:00)
--- NOTE | 2017-03-14 19:44 | PN ---
Progress Note, Physician History of Present Illness: No new complaints - Current Medication List Current Medications: Active Medications Chlordiazepoxide HCl (Librium -) 25 mg PO Q4H PRN PRN Reason: WITHDRAWAL(CONT SUBST) Stop: 03/16/17 08:40 Last Admin: 03/13/17 16:51 Dose: 25 mg Chlordiazepoxide HCl (Librium -) 25 mg PO Q2L-BUN [facility] Stop: 03/15/17 05:01 Last Admin: 03/14/17 16:31 Dose: 25 mg Chlordiazepoxide HCl (Librium -) 15 mg PO [id number] [facility] Stop: 03/16/17 05:01 Chlordiazepoxide HCl (Librium -) 10 mg PO [id number] [facility] Stop: 03/17/17 05:01 Folic Acid (Folic Acid -) 1 mg PO DAILY [facility] Last Admin: 03/14/17 09:00 Dose: 1 mg Dextrose/Sodium Chloride (D5-1/2ns -) 1,000 mls @ 75 mls/hr IV ASDIR [facility] Last Admin: 03/13/17 23:29 Dose: Not Given Lorazepam (Ativan -) 2 mg PO Q6HPO [facility] Last Admin: 03/14/17 19:04 Dose: Not Given - Objective Vital Signs: Vital Signs Temperature 97.5 F L 03/14/17 17:22 Pulse Rate 72 03/14/17 17:22 Respiratory Rate 20 03/14/17 17:22 Blood Pressure 116/74 03/14/17 17:22 O2 Sat by Pulse Oximetry (%) 95 03/14/17 09:00 Cardiovascular: Yes: WNL, Regular Rate and Rhythm Respiratory: Yes: WNL, Regular, CTA Bilaterally Gastrointestinal: Yes: WNL, Normal Bowel Sounds, Soft Labs: CBC, BMP 03/13/17 06:30 03/13/17 06:30 Problem List - Problems (1) Alcohol withdrawal Code(s): F10.239 - ALCOHOL DEPENDENCE WITH WITHDRAWAL, UNSPECIFIED Qualifiers : Complication of substance-induced condition: uncomplicated Qualified Code(s): F10.230 - Alcohol dependence with withdrawal, uncomplicated
[2017-03-14] MEDS: chlordiazePOXIDE HCL 25 MG CAPSULE PO PRN (20:03)
[2017-03-14] MEDS: DEXTROSE 5%-0.45% SALINE 1,000 ML IV SCH (23:01)
[2017-03-15] MEDS: LORazepam 1 MG TABLET PO SCH ×3 (00:01→15:42)
[2017-03-15] MEDS: chlordiazePOXIDE HCL 25 MG CAPSULE PO SCH (04:49)
[2017-03-15] MEDS: DEXTROSE 5%-0.45% SALINE 1,000 ML IV SCH ×2 (05:22→23:42)
[2017-03-15] MEDS: chlordiazePOXIDE HCL 25 MG CAPSULE PO PRN ×2 (08:55→15:41)
[2017-03-15] MEDS: FOLIC ACID 1 MG TABLET (FP) PO SCH (09:04)
[2017-03-15] MEDS: chlordiazePOXIDE 5 MG CAPSULE PO SCH ×3 (10:52→23:30)
--- NOTE | 2017-03-15 22:27 | PN ---
Progress Note, Physician History of Present Illness: No new complaints - Current Medication List Current Medications: Active Medications Chlordiazepoxide HCl (Librium -) 25 mg PO Q4H PRN PRN Reason: WITHDRAWAL(CONT SUBST) Stop: 03/16/17 08:40 Last Admin: 03/15/17 15:41 Dose: 25 mg Chlordiazepoxide HCl (Librium -) 15 mg PO [id number] [facility] Stop: 03/16/17 05:01 Last Admin: 03/15/17 17:28 Dose: 15 mg Chlordiazepoxide HCl (Librium -) 10 mg PO [id number] [facility] Stop: 03/17/17 05:01 Folic Acid (Folic Acid -) 1 mg PO DAILY [facility] Last Admin: 03/15/17 09:04 Dose: 1 mg Dextrose/Sodium Chloride (D5-1/2ns -) 1,000 mls @ 75 mls/hr IV ASDIR [facility] Last Admin: 03/15/17 05:22 Dose: 75 mls/hr Lorazepam (Ativan -) 2 mg PO Q6HPO [facility] Last Admin: 03/15/17 15:42 Dose: Not Given - Objective Vital Signs: Vital Signs Temperature 98.5 F 03/15/17 17:58 Pulse Rate 84 03/15/17 17:58 Respiratory Rate 18 03/15/17 17:58 Blood Pressure 133/84 03/15/17 17:58 O2 Sat by Pulse Oximetry (%) 97 03/15/17 21:00 Cardiovascular: Yes: WNL, Regular Rate and Rhythm Respiratory: Yes: WNL, Regular, CTA Bilaterally Gastrointestinal: Yes: WNL, Normal Bowel Sounds, Soft Labs: CBC, BMP 03/13/17 06:30 03/13/17 06:30 Problem List - Problems (1) Alcohol withdrawal Code(s): F10.239 - ALCOHOL DEPENDENCE WITH WITHDRAWAL, UNSPECIFIED Qualifiers : Complication of substance-induced condition: uncomplicated Qualified Code(s): F10.230 - Alcohol dependence with withdrawal, uncomplicated
[2017-03-16] MEDS: LORazepam 1 MG TABLET PO SCH ×5 (00:09→17:40)
[2017-03-16] MEDS: chlordiazePOXIDE 5 MG CAPSULE PO SCH ×4 (05:25→22:40)
[2017-03-16] MEDS: DEXTROSE 5%-0.45% SALINE 1,000 ML IV SCH ×2 (06:43→20:15)
[2017-03-16] MEDS: FOLIC ACID 1 MG TABLET (FP) PO SCH (10:06)
--- NOTE | 2017-03-16 19:54 | PN ---
Progress Note, Physician History of Present Illness: No new complaints - Current Medication List Current Medications: Active Medications Chlordiazepoxide HCl (Librium -) 10 mg PO [id number] Stop: 03/17/17 05:01 Last Admin: 03/16/17 17:40 Dose: 10 mg Folic Acid (Folic Acid -) 1 mg PO DAILY [facility] Last Admin: 03/16/17 10:06 Dose: 1 mg Dextrose/Sodium Chloride (D5-1/2ns -) 1,000 mls @ 75 mls/hr IV [facility] Last Admin: 03/16/17 06:43 Dose: 75 mls/hr Lorazepam (Ativan -) 2 mg PO Q6HPO [facility] Last Admin: 03/16/17 17:40 Dose: 2 mg - Objective Vital Signs: Vital Signs Temperature 98.0 F 03/16/17 13:48 Pulse Rate 70 03/16/17 13:48 Respiratory Rate 18 03/16/17 13:48 Blood Pressure 121/65 03/16/17 13:48 O2 Sat by Pulse Oximetry (%) 97 03/16/17 09:00 Cardiovascular: Yes: WNL, Regular Rate and Rhythm Respiratory: Yes: WNL, Regular, CTA Bilaterally Gastrointestinal: Yes: WNL, Normal Bowel Sounds, Soft Labs: CBC, BMP 03/13/17 06:30 03/13/17 06:30 Problem List - Problems (1) Alcohol withdrawal Code(s): F10.239 - ALCOHOL DEPENDENCE WITH WITHDRAWAL, UNSPECIFIED Qualifiers : Complication of substance-induced condition: uncomplicated Qualified Code(s): F10.230 - Alcohol dependence with withdrawal, uncomplicated
[2017-03-17] MEDS: LORazepam 1 MG TABLET PO SCH ×3 (00:09→08:57)
[2017-03-17] MEDS: chlordiazePOXIDE 5 MG CAPSULE PO SCH (05:57)
[2017-03-17] MEDS: FOLIC ACID 1 MG TABLET (FP) PO SCH (09:16)
[2017-03-17 10:18] VITALS: BP 110/62; PULSE 65; TEMP 98
== END 2017-03-17 10:39 | disposition home or self-care (01) | DRG 775 ==
LOC: JER 13:21 → JERBED 15:13 → J8W 17:51
PROVIDERS: ADMIT Internal Medicine; ATTEND Internal Medicine
PROC: HZ2ZZZZ Detoxification Services for Substance Abuse Treatment (ICD-10-PCS; principal; 2017-03-12)
DX: F10.239 Alcohol dependence with withdrawal, unspecified (principal); R00.0 Tachycardia, unspecified; G25.2 Other specified forms of tremor; F17.210 Nicotine dependence, cigarettes, uncomplicated; G40.509 Epileptic seizures related to external causes, not intractable, without status epilepticus; R11.2 Nausea with vomiting, unspecified
CPT/HCPCS: 36415; 80053; 83690; 85025; 99284-25

== ENCOUNTER 2019-07-04 11:27 | Inpatient (IN) | payer OTHER | END 2019-07-09 11:25 | disposition home or self-care (01) | LOC: YASAS 11:27 → Y6N 13:34 ==